=== PATIENT | female | born 1975 | race Caucasian/White ===

== ENCOUNTER 2022-05-02 08:34 | Inpatient (IN) | payer BC ==
[2022-05-02] VITALS (33 sets, daily range): BP systolic 86–136; BP diastolic 48–85
[~2022-05-02] VITALS: Ht 172.7 cm; Wt 126.6 kg
--- NOTE | 2022-05-02 08:44 | NUR ---
[id number] FROM HOME ALTERED, PER EMS REPORT PATIENT COMPLAINED OF ABDOMINAL PAIN LAST NIGHT AT 2230, COULD NOT WAKE UP THIS MORNING, BS 94. PT ARRIVED IS RESPIRATORY DISTRESS, EMS BAGGING PT UPON ARRIVAL. ATTACHED TO MONITOR. DR RICHEY AT BEDSIDE PREPARING FOR INTUBATION. 4MG OF NARCAN GIVEN, MINIMAL RESPONSE. PT VITAL PRIOR TO INTUBATION BLOD PRESSURE 140/94 HEART RATE 119 SATTING AT 100% 6L NC. 20MG OF ETOMIDATE GIVEN AT 0844 AND 100MG ROCURONIUM. INTRA PROCEDURE VITALS BLOOD PRESSURE 171/110 HEART RATE 124 SATTING AT 100%. ET ESTABLIHSED AT 0855 7' AND 23 AT THE LIP. CONFIRMED BY X RAY.
[2022-05-02] MEDS ORDERED: PROPOFOL 100 ML ONE (08:47)
[2022-05-02] MEDS ORDERED: IV NS 0.9% 1,000 ML BAG IV ONE (09:00)
--- NOTE | 2022-05-02 09:00 | NUR ---
16FR HOUSE IN PLACE, URINE OUT PUT 200CC CLEAR AND YELLOW, URINE COLLECTED AT BEDSIDE.
[2022-05-02 09:24] LABS: BASOPHILS # (AUTO) 0.1 K/uL (0.0-0.2); BASOPHILS % (AUTO) 0.2 % (0.0-2.0); EOSINOPHILS % (AUTO) 0.1 % (0.0-6.0); HEMATOCRIT 35 % (33-45); HEMOGLOBIN 10.6 g/dL (11.5-14.8); LYMPHOCYTES # (AUTO) 2.4 K/uL (0.8-4.8); LYMPHOCYTES % (AUTO) 10.8 % (20.0-44.0); MEAN CORPUSCULAR HGB CONC 30 g/dl (31.0-36.0); MEAN CORPUSCULAR VOLUME 83 fL (82-100); MONOCYTES % (AUTO) 4.6 % (2.0-12.0); NEUTROPHILS # (AUTO) 18.6 K/uL (1.8-8.9); NEUTROPHILS % (AUTO) 84.3 % (43.0-81.0); PLATELET COUNT (AUTO) 370 K/uL (150-450); RED BLOOD CELL COUNT(AUTO) 4.24 MIL/uL (4.0-5.2); WHITE BLOOD COUNT (AUTO) 22.1 K/uL (4.3-11.0)
[2022-05-02 09:27] LABS: BILIRUBIN,URINE NEGATIVE (NEGATIVE); COLOR,URINE ORANGE (YELLOW); LEUKOCYTE ESTERASE ,URINE NEGATIVE (NEGATIVE); NITRITE, URINE NEGATIVE (NEGATIVE); PH,URINE 5.5 (5.0-8.0); PROTEIN,URINE 2+ mg/dl (NEGATIVE); UGLUCOSE NEGATIVE (NEGATIVE)
--- NOTE | 2022-05-02 09:35 | NUR ---
MOVE SHEET SUBMITTED.
[2022-05-02 09:39] LABS: SERUM AMMONIA 79 umol/L (11-32)
--- NOTE | 2022-05-02 09:39 | NUR ---
COVID SWAB COLLECTED AND SENT TO LAB
[2022-05-02 09:40] LABS: CALCIUM, SERUM 7.9 mg/dL (8.5-10.1); CARBON DIOXIDE 22 mmol/L (21-32); CHLORIDE 97 mmol/L (98-107); GLUCOSE 80 mg/dL (74-106); POTASSIUM 4.8 mmol/L (3.5-5.1); SODIUM SERUM 133 mmol/L (136-145); UREA NITROGEN, BLOOD 9 mg/dL (7-18)
[2022-05-02 09:45] LABS: ALANINE AMINOTRANSFERASE 288 U/L (12-78); ALBUMIN 3.1 g/dL (3.4-5.0); ALCOHOL, BLOOD < 3 mg/dL (0-0); ALKALINE PHOSPHATASE 151 U/L (46-116); ASPARTATE AMINOTRANSFERASE 708 U/L (15-37); BILIRUBIN,DIRECT 0.6 mg/dL (0.0-0.2); BILIRUBIN,TOTAL 0.7 mg/dL (0.2-1.0); TOTAL PROTEIN, SERUM 7.6 g/dL (6.4-8.2)
[2022-05-02 09:46] LABS: ACETAMINOPHEN < 10 ug/ml (10-30)
[2022-05-02 09:49] LABS: BACTERIA,URINE Few /HPF (None Seen); RBC,URINE NONE SEEN /HPF (0-2)
[2022-05-02 09:53] LABS: THYROID STIMULATING HORMONE 4.359 uIU/mL (0.358-3.74)
[2022-05-02] MEDS ORDERED: CEFEPIME 1 GM in IV D5W 50 ML IV ONE (10:00)
[2022-05-02] MEDS ORDERED: IV NS 0.9% 1,000 ML IV ONE (10:00)
[2022-05-02] MEDS ORDERED: VANCOMYCIN 1 GM in IV D5W 250 ML IV ONE (10:00)
[2022-05-02] MEDS ORDERED: ALPR0.25 PO (10:39)
[2022-05-02] MEDS ORDERED: SERT25TA PO (10:39)
[2022-05-02] MEDS ORDERED: PANT40TA49 PO (11:07)
--- NOTE | 2022-05-02 11:20 | NUR ---
BLOOD PRESSURE LOW. DR RICHEY IS AWARE, DR RICHEY WANTS TO START A CENTRAL LINE AND THEN START LEVOPHED
[2022-05-02 11:37] LABS: ABG BASE EXCESS -12.2 mmol/L; ABG PCO2 62.7 mmHg (35.0-45.0); ABG PH 7.075 (7.350-7.450); ABG PO2 91.5 mmHg (75.0-100.0); COHb 0.3 % (0.5-1.5); MetHb 0.4 % (0.0-1.5); O2Hb 94.5 % (94.0-97.0); PEEP,BG 5 cm H2O; SITE, ABG Right Radial; VENT MODE, BG AC 100%; VT, ABG 450 mL
--- NOTE | 2022-05-02 11:39 | NUR ---
PICC LINE NURSE AT BEDSIDE
--- NOTE | 2022-05-02 11:50 | NUR ---
GOT BED 254
--- NOTE | 2022-05-02 12:06 | NUR ---
FRANCESCA PICC LINE INSERTED.
[2022-05-02] MEDS ORDERED: MAG HYDROX/AL HYDROX/SIMETH 30 ML UDC PO PRN (12:30)
[2022-05-02] MEDS ORDERED: MAGNESIUM HYDROXIDE 30 ML UDC PO PRN (12:30)
[2022-05-02] MEDS ORDERED: ZOLPIDEM TARTRATE 5 MG TABLET PO PRN (12:30)
[2022-05-02] MEDS ORDERED: ACETAMINOPHEN 650 MG/SUPP.RECT RC PRN (12:30)
[2022-05-02] MEDS ORDERED: LACTULOSE 10 G/15 ML UDC (PYXIS) PO PRN (12:30)
[2022-05-02] MEDS ORDERED: ACETAMINOPHEN 325 MG TABLET PO PRN (12:30)
[2022-05-02] MEDS ORDERED: Z GUARD REMEDY 4 OZ OINT TP PRN (12:30)
[2022-05-02] MEDS ORDERED: PIPERACILLIN /TAZOBACTAM 3.375 G in IV D5W 50 ML IV ONE (13:00)
--- NOTE | 2022-05-02 13:07 | NUR ---
DAKOTAH TREVIZO, FOR REPORT; NO AVAILABLE AT THIS TIME, WILL CALL BACK
--- NOTE | 2022-05-02 13:18 | NUR ---
ATTEMPTED TO GIVE REPORT, CHARGED NURSE IS ALSO BUSY PER GLIDING PILOT INSTRUCTOR
--- NOTE | 2022-05-02 13:55 | NUR ---
report given to Janice CLAIRE for [place]
--- NOTE | 2022-05-02 13:57 | NUR ---
PATIENT REGISTRATION MANAGER AT BEDSIDE FOR ULTRASOUND
--- NOTE | 2022-05-02 13:57 | NUR ---
RT CALLED FOR PT TRANSFER
--- NOTE | 2022-05-02 14:25 | NUR ---
RT NOTE PT WAS TRANSFERRED FROM ER TO ICU BED 254 FROM BED 5 ER. PT IS CURRENTLY STABLE SHOWING NO SIGNS OF RESP. DISRTRESS WILL CONTINUE TO MONITOR FOR ANY CHANGES. VENTILATOR PLUGGED INTO RED OUTLET, AMBU BAG BY BEDSIDE. PT HAS BEEN SUCTIONED AND TOLERATED WELL . PT IS CURRENTLY STABLE.
--- NOTE | 2022-05-02 14:28 | NUR ---
PT TRANSFERRED TO [address] [facility] ACLS PROTOCOL. RT AT BEDSIDE W/ PT. WARM HAND OFF GIVEN TO DAKOTAH TREVIZO.
--- NOTE | 2022-05-02 14:37 | NUR ---
14:30 attempted to perform US-GB exam. Per RN, Tyrell Pt was just transferred to ICU. PT not stable for exam at this time. will try later.
[2022-05-02] MEDS: IV D5/ 0.9% NACL 1,000 ML IV PRN ×2 (14:51→22:05)
[2022-05-02] MEDS ORDERED: ETOMIDATE 2 MG/ML VIAL IV ONE (15:06)
[2022-05-02] MEDS ORDERED: PROPOFOL 200 MG/20 ML VIAL IV ONE (15:06)
[2022-05-02] MEDS ORDERED: ROCURONIUM BROMIDE 50 MG/5 ML IV ONE (15:06)
[2022-05-02] MEDS: Folic acid 1 MG in IV D5W 50 ML IV SCH (15:15)
[2022-05-02] MEDS: NOREPINEPHRINE 8 MG in IV NS 0.9% 242 ML IV PRN ×2 (15:18→19:27)
--- NOTE | 2022-05-02 15:43 | NUR ---
pt. received from er on vent support via 7.0 et tube secured @ 23 cm lipline with vent settings below as ordered: AC 16 VT 450ML FIO2 90% PEEP +5 BREATH SOUNDS CLEAR BILATERAL. VENT PLUGGED INTO RED OUTLET WITH ALARMS ON AND FUNCTIONING. BVM @ BEDSIDE. Addendum: 05/02/22 at 1548 by ANTONIO BENTON RT Amended: Links added.
[2022-05-02] MEDS: Thiamine 100 MG in IV D5W 50 ML IV SCH (16:12)
[2022-05-02] MEDS: PROPOFOL 100 ML IV PRN ×3 (16:13→23:50)
[2022-05-02] MEDS ORDERED: HEPARIN SODIUM, PORCINE 5000 UNITS/1 ML VIAL SQ SCH (21:00)
[2022-05-02] MEDS: PIPERACILLIN /TAZOBACTAM 3.375 G in IV D5W 100 ML IV SCH (21:35)
[2022-05-02] MEDS: IV NS 0.9% 250 ML IV PRN (21:35)
[2022-05-03] VITALS (92 sets, daily range): BP systolic 87–131; BP diastolic 21–67
[2022-05-03] MEDS: PROPOFOL 100 ML IV PRN ×9 (02:43→22:49)
[2022-05-03] MEDS: NOREPINEPHRINE 8 MG in IV NS 0.9% 242 ML IV PRN ×2 (03:16→03:19)
[2022-05-03] MEDS: IV D5/ 0.9% NACL 1,000 ML IV PRN ×3 (04:13→19:19)
[2022-05-03] MEDS: PIPERACILLIN /TAZOBACTAM 3.375 G in IV D5W 100 ML IV SCH ×3 (05:30→21:01)
[2022-05-03 05:35] LABS: ALANINE AMINOTRANSFERASE 856 U/L (12-78); ALBUMIN 2.4 g/dL (3.4-5.0); ALKALINE PHOSPHATASE 109 U/L (46-116); BILIRUBIN,DIRECT 0.3 mg/dL (0.0-0.2); BILIRUBIN,TOTAL 0.5 mg/dL (0.2-1.0); CALCIUM, SERUM 6.7 mg/dL (8.5-10.1); CARBON DIOXIDE 22 mmol/L (21-32); CHLORIDE 102 mmol/L (98-107); CREATININE 3.2 mg/dL (0.6-1.3); GLUCOSE 115 mg/dL (74-106); SODIUM SERUM 133 mmol/L (136-145); UREA NITROGEN, BLOOD 21 mg/dL (7-18)
[2022-05-03 05:37] LABS: CHOLESTEROL 148 mg/dL (<200); HDL CHOLESTEROL 45 mg/dL (40-60); LDL 66 mg/dL (0-99); T4 (THYROXINE) 4.3 ug/dL (4.7-13.3); TRIGLYCERIDES 340 mg/dL (30-150)
[2022-05-03 06:09] LABS: IRON, SERUM 13 ug/dl (50-175); TOTAL IRON BINDING CAPACITY 368 ug/dl (250-450)
[2022-05-03 06:14] LABS: BASOPHILS % (AUTO) 0.1 % (0.0-2.0); EOSINOPHILS % (AUTO) 0.1 % (0.0-6.0); HEMATOCRIT 33 % (33-45); HEMOGLOBIN 10.1 g/dL (11.5-14.8); LYMPHOCYTES # (AUTO) 0.8 K/uL (0.8-4.8); LYMPHOCYTES % (AUTO) 5.8 % (20.0-44.0); MEAN CORPUSCULAR HGB CONC 31 g/dl (31.0-36.0); MEAN CORPUSCULAR VOLUME 82 fL (82-100); MONOCYTES # (AUTO) 0.5 K/uL (0.1-1.30); NEUTROPHILS # (AUTO) 11.8 K/uL (1.8-8.9); PLATELET COUNT (AUTO) 264 K/uL (150-450); RED BLOOD CELL COUNT(AUTO) 4.02 MIL/uL (4.0-5.2); WHITE BLOOD COUNT (AUTO) 13.1 K/uL (4.3-11.0)
[2022-05-03 06:54] LABS: ASPARTATE AMINOTRANSFERASE > 1000 U/L (15-37)
[2022-05-03 06:55] LABS: CREATINE KINASE, TOTAL > 1000 U/L (26-192)
[2022-05-03] MEDS: PANTOPRAZOLE 40 MG VIAL IV SCH (08:02)
[2022-05-03] MEDS: ASPIRIN 81 MG TAB.CHEW PO SCH (08:03)
[2022-05-03 08:45] LABS: IRON, SERUM 9 ug/dl (50-175); TOTAL IRON BINDING CAPACITY 324 ug/dl (250-450)
[2022-05-03 08:58] LABS: FERRITIN 254 ng/mL (8-388)
[2022-05-03 09:05] LABS: ABG PCO2 53.7 mmHg (35.0-45.0); ABG PH 7.158 (7.350-7.450); ABG PO2 98.1 mmHg (75.0-100.0); AaDO2 125.3 mmHg; COHb 0.3 % (0.5-1.5); MetHb 0.2 % (0.0-1.5); O2Hb 95.5 % (94.0-97.0); SITE, ABG Right Radial
[2022-05-03] MEDS ORDERED: VANCOMYCIN 1.5 GM in IV D5W 500ml IV SCH (10:00)
[2022-05-03 12:01] LABS: ABG BASE EXCESS -11.2 mmol/L; ABG OXYGEN SATURATION 68.5 % (92.0-98.5); ABG PCO2 53.5 mmHg (35.0-45.0); ABG PH 7.137 (7.350-7.450); ABG PO2 42.2 mmHg (75.0-100.0); MetHb 0.3 % (0.0-1.5); O2Hb 68.3 % (94.0-97.0); SITE, ABG Other
[2022-05-03] MEDS: Folic acid 1 MG in IV D5W 50 ML IV SCH (15:08)
[2022-05-03] MEDS: Thiamine 100 MG in IV D5W 50 ML IV SCH (15:58)
[2022-05-04] VITALS (42 sets, daily range): BP systolic 90–126; BP diastolic 48–80
[2022-05-04] MEDS: PROPOFOL 100 ML IV PRN ×6 (01:03→22:47)
[2022-05-04] MEDS: IV D5/ 0.9% NACL 1,000 ML IV PRN ×4 (02:10→23:37)
[2022-05-04] MEDS: IV NS 0.9% 250 ML IV PRN (02:10)
[2022-05-04] MEDS: PIPERACILLIN /TAZOBACTAM 3.375 G in IV D5W 100 ML IV SCH ×3 (04:01→20:52)
[2022-05-04 04:54] LABS: BASOPHILS # (AUTO) 0.1 K/uL (0.0-0.2); BASOPHILS % (AUTO) 0.7 % (0.0-2.0); HEMATOCRIT 29 % (33-45); HEMOGLOBIN 9.1 g/dL (11.5-14.8); LYMPHOCYTES % (AUTO) 5.8 % (20.0-44.0); MEAN CORPUSCULAR HGB CONC 31 g/dl (31.0-36.0); MEAN CORPUSCULAR VOLUME 82 fL (82-100); NEUTROPHILS # (AUTO) 14.7 K/uL (1.8-8.9); NEUTROPHILS % (AUTO) 86.5 % (43.0-81.0); PLATELET COUNT (AUTO) 262 K/uL (150-450); RED BLOOD CELL COUNT(AUTO) 3.57 MIL/uL (4.0-5.2); WHITE BLOOD COUNT (AUTO) 17.1 K/uL (4.3-11.0)
[2022-05-04 05:52] LABS: ALBUMIN 2.4 g/dL (3.4-5.0); BILIRUBIN,TOTAL 0.5 mg/dL (0.2-1.0); CALCIUM, SERUM 6.8 mg/dL (8.5-10.1); CREATININE 5.4 mg/dL (0.6-1.3); PHOSPHORUS 6.2 mg/dL (2.5-4.9); POTASSIUM 5.2 mmol/L (3.5-5.1); TOTAL PROTEIN, SERUM 6.5 g/dL (6.4-8.2)
--- NOTE | 2022-05-04 07:00 | NUR ---
RN NOTES RECEIVED PT ON BED, INTUBATED AND SEDATED, TOLERAING VENT SETTING WELL, O2 SAT WNL, ON TELE SR HR IN 90'S , HOUSE TO GRAVITY, NO URINE OUTPUT NOTED, DIPRIVAN AT 55 MCG/KG/MIN RUNNING , IVF AT 150CC/HR , PT NPO AT THIS TIME, SR UP x3, CALL LIGHT WITHIN EASY REACH, BED LOCKED AND IN LOWEST POSITION CONTINUE TO MONITOR.
[2022-05-04 07:13] LABS: ALBUMIN 2.4 g/dL (3.4-5.0); BILIRUBIN,DIRECT 0.3 mg/dL (0.0-0.2); BILIRUBIN,TOTAL 0.5 mg/dL (0.2-1.0); TOTAL PROTEIN, SERUM 6.5 g/dL (6.4-8.2)
[2022-05-04] MEDS: PANTOPRAZOLE 40 MG VIAL IV SCH (08:28)
[2022-05-04 09:32] LABS: ABG BASE EXCESS -14.7 mmol/L; ABG OXYGEN SATURATION 74.3 % (92.0-98.5); ABG PCO2 54.9 mmHg (35.0-45.0); ABG PH 7.059 (7.350-7.450); ABG PO2 45.4 mmHg (75.0-100.0); COHb 0.1 % (0.5-1.5); MetHb 0.2 % (0.0-1.5); O2Hb 74.1 % (94.0-97.0); SITE, ABG Other
--- NOTE | 2022-05-04 10:15 | NUR ---
RT PER DR MORENO ETT PUSHED IN 2CM AND SECURED AT 25CM AT THE TOP LIP. VENT CHANGES MADE AC 28, 550, 40% +5. Addendum: 05/04/22 at 1016 by CARLA GALDAMEZ RT Amended: Links added.
--- NOTE | 2022-05-04 11:00 | NUR ---
RN NOTES PT NOT STABLE TO GO OFF FLOOR FOR HIDA SCAN PER DR MORENO ORDER
--- NOTE | 2022-05-04 11:30 | NUR ---
RN NOTES DR MORENO NOTIFIED REGARDING ABG RESULTS , NEW VENT SETTING ORDER RECEIVED .
[2022-05-04 11:58] LABS: ABG BASE EXCESS -12.3 mmol/L; ABG OXYGEN SATURATION 99.1 % (92.0-98.5); ABG PCO2 26.8 mmHg (35.0-45.0); ABG PH 7.296 (7.350-7.450); ABG PO2 162.9 mmHg (75.0-100.0); AaDO2 91.5 mmHg; COHb 0.3 % (0.5-1.5); MetHb 0.1 % (0.0-1.5); O2Hb 98.7 % (94.0-97.0); SITE, ABG Right Radial
[2022-05-04] MEDS ORDERED: VANCOMYCIN POST DIALYSIS 500MG IV PRN ×2 (12:00)
--- NOTE | 2022-05-04 13:00 | NUR ---
RN NOTES NGT INSERTED , PLACEMENT VERIFIED BY TWO RNS .
[2022-05-04] MEDS: ASPIRIN 81 MG TAB.CHEW PO SCH (13:20)
[2022-05-04] MEDS: LEVOTHYROXINE SODIUM 25 MCG TABLET PO SCH (14:45)
--- NOTE | 2022-05-04 15:00 | NUR ---
RN NOTES PT SEDATED, TOLERAING VENT SETTING WELL, SUPPORTIVE FAMILY AT THE BEDSIDE, CONTINUE TO MONITOR .
[2022-05-04] MEDS: Folic acid 1 MG in IV D5W 50 ML IV SCH (15:48)
[2022-05-04] MEDS: Thiamine 100 MG in IV D5W 50 ML IV SCH (16:06)
--- NOTE | 2022-05-04 18:11 | NUR ---
RN NOTES PT REMIANS INTUBATED AND SEDATED, ON DIPRIVAN AT 40 MCG/KG/MIN, TOLERAING VENT SETTING WELL, FIO2 30% AT AT THIS TIME, DR NAJERA AT THE BEDSIDE UPDATING FAMILY REGARDING PT STATUS, NO URINE OUTPUT NOTED, MD AWARE . WILL ENDORSE TO NIGHT SHIT NURSE FOR CONTINUITY OF CARE .
[2022-05-05] VITALS (66 sets, daily range): BP systolic 90–204; BP diastolic 47–98
--- NOTE | 2022-05-05 01:07 | NUR ---
ICU/RN: ZHANG SHIPMAN AT BEDSIDE. RIGHT IJ HD CATH PLACED. PT TOLERATED WELL.
[2022-05-05] MEDS: PROPOFOL 100 ML IV PRN ×7 (01:44→21:52)
[2022-05-05 04:18] LABS: BASOPHILS % (AUTO) 0.3 % (0.0-2.0); EOSINOPHILS % (AUTO) 1.9 % (0.0-6.0); HEMATOCRIT 24 % (33-45); HEMOGLOBIN 7.6 g/dL (11.5-14.8); LYMPHOCYTES # (AUTO) 1.5 K/uL (0.8-4.8); MEAN CORPUSCULAR HGB CONC 32 g/dl (31.0-36.0); MEAN CORPUSCULAR VOLUME 80 fL (82-100); MONOCYTES # (AUTO) 1.5 K/uL (0.1-1.30); MONOCYTES % (AUTO) 10.1 % (2.0-12.0); NEUTROPHILS # (AUTO) 11.7 K/uL (1.8-8.9); NEUTROPHILS % (AUTO) 77.7 % (43.0-81.0); PLATELET COUNT (AUTO) 234 K/uL (150-450); RED BLOOD CELL COUNT(AUTO) 3.03 MIL/uL (4.0-5.2)
[2022-05-05 04:36] LABS: CALCIUM, SERUM 6.9 mg/dL (8.5-10.1); CREATININE 6.9 mg/dL (0.6-1.3); MAGNESIUM 1.9 mg/dL (1.8-2.4); PHOSPHORUS 6.3 mg/dL (2.5-4.9); POTASSIUM 4.5 mmol/L (3.5-5.1)
[2022-05-05 04:43] LABS: BILIRUBIN,DIRECT 0.4 mg/dL (0.0-0.2); BILIRUBIN,TOTAL 0.5 mg/dL (0.2-1.0); TOTAL PROTEIN, SERUM 5.7 g/dL (6.4-8.2)
[2022-05-05] MEDS: PIPERACILLIN /TAZOBACTAM 3.375 G in IV D5W 100 ML IV SCH (05:14)
[2022-05-05] MEDS: IV D5/ 0.9% NACL 1,000 ML IV PRN ×3 (06:13→19:08)
--- NOTE | 2022-05-05 06:45 | NUR ---
ICU/RN: CARLOS MULTANI RN AT BEDSIDE TO PERFORM DIALYSIS.
--- NOTE | 2022-05-05 07:15 | NUR ---
RN NOTES RECEIVED PATIENT ETT/VENT NE=281, FIO2-30, PEEP-0, SETTING TOLERATING WELL, SEDATED DIPRIVAN 35MCG/KG/HR. IV INFUSING D5NS@150ML/HR, AND TKO ON KAREN PICC LINE INTACT. RIJ HD CATH INTACT GETTING DIALYZE AT THIS TIME. HR- 66, BP-94/52 ON BEDSIDE MONITOR. BILATERAL SOFT RESTRAIN INTACT, RECHECKED CIRCULATION, ASSIST TURN AND REPOSTION Q 2 HR. WILL FOLLOW UP.
[2022-05-05] MEDS: LEVOTHYROXINE SODIUM 25 MCG TABLET PO SCH (08:10)
[2022-05-05] MEDS: PANTOPRAZOLE 40 MG VIAL IV SCH (08:17)
[2022-05-05] MEDS: ASPIRIN 81 MG TAB.CHEW PO SCH (08:18)
--- NOTE | 2022-05-05 08:46 | NUR ---
RN NOTES GET VERBAL ORDER START NEPRO @20 ML.HR NGT FEEDING , AND SEDATION VACATION TODAY.
--- NOTE | 2022-05-05 08:48 | NUR ---
RN NOTES FINISHED HD THIS TIME, BP 97/55, P- 64, R-22, , OUTPUT WAS -500ML, PATIENT GETTING CHEST X-RAY AT THIS TIME WELL.
[2022-05-05] MEDS ORDERED: NEPRO 1,000 ML BOTTLE GT SCH (09:00)
[2022-05-05 09:07] LABS: ABG BASE EXCESS -5.7 mmol/L; ABG OXYGEN SATURATION 97.6 % (92.0-98.5); ABG PCO2 27.5 mmHg (35.0-45.0); ABG PH 7.427 (7.350-7.450); ABG PO2 99.1 mmHg (75.0-100.0); AaDO2 82.5 mmHg; COHb 0.1 % (0.5-1.5); O2Hb 97.5 % (94.0-97.0); SITE, ABG Right Radial
--- NOTE | 2022-05-05 09:25 | NUR ---
RN NOTES HELD SEDATION AT THIS TIME , PATIENT CALM AND COOPERATIVE, TITRATED PER PROTOCOL. PATIENT AWAKE, NO ACUTE RESPIRATORY DISTRESS, RT AWARE OF, ABG DONE, FAMILY NEXT TO THE BED. WILL FOLLOW UP.
[2022-05-05] MEDS ORDERED: MAG HYDROX/AL HYDROX/SIMETH 30 ML UDC NG PRN (09:49)
[2022-05-05] MEDS ORDERED: MAGNESIUM HYDROXIDE 30 ML UDC NG PRN (09:49)
[2022-05-05] MEDS ORDERED: LACTULOSE 10 G/15 ML UDC (PYXIS) NG PRN (09:51)
--- NOTE | 2022-05-05 10:09 | NUR ---
rn notes resumed sedation back at this time diprivan 10mcg/kg/min, patient severely agitated, suction , will titrate up per protocol. hr-84, o2- 87%, increased fio2-45% via RT , bp 153/95, will follow up. will follow up.
[2022-05-05] MEDS: THIAMINE HCL 100 MG TABLET NG SCH (10:50)
[2022-05-05] MEDS: FOLIC ACID 1 MG TABLET NG SCH (10:50)
[2022-05-05] MEDS: NEPRO 1,000 ML BOTTLE NG SCH (11:53)
--- NOTE | 2022-05-05 12:10 | NUR ---
rn notes started NGT feeding at this time Nepro 20ml @20hr. patient sedated, family next to the bed, seen hospitalist, due medication administered. will follow up.
[2022-05-05] MEDS: PIPERACILLIN /TAZOBACTAM 2.25 G in IV D5W 50 ML IV SCH ×2 (12:24→20:49)
[2022-05-05] MEDS: IV NS 0.9% 250 ML IV PRN (12:29)
--- NOTE | 2022-05-05 18:35 | NUR ---
RN NOTES PM CARE DONE, SUCTION, MOUTH CARE, DUE MEDICATION ADMINISTERED, VSS, NO ACUTE RESPIRATORY DISTRESS. PATIENT TOLERATING FEEDING WELL. RECHECKED BILATERAL WRIST RESTRAIN CIRCULATION, ASSIST TURN AND REPOSITION Q 2 HR. INFUSING DIPRIVAN 45MCG/KG/MIN,, D5NS@150ML, AND TKO @10ML/HR ON FRANCESCA PICC LINE INTACT. KEEP HOB ELEVATED FOR ASPIRATION PRECAUTION. ENDORSED ONCOMING NURSE KEMAL.
[2022-05-06] VITALS (29 sets, daily range): BP systolic 92–173; BP diastolic 47–93
[2022-05-06] MEDS: PROPOFOL 100 ML IV PRN ×10 (00:19→23:41)
[2022-05-06] MEDS: IV D5/ 0.9% NACL 1,000 ML IV PRN ×4 (02:32→21:42)
[2022-05-06] MEDS: PIPERACILLIN /TAZOBACTAM 2.25 G in IV D5W 50 ML IV SCH ×3 (04:35→20:19)
[2022-05-06 04:36] LABS: BASOPHILS # (AUTO) 0.1 K/uL (0.0-0.2); BASOPHILS % (AUTO) 0.6 % (0.0-2.0); EOSINOPHILS % (AUTO) 4.1 % (0.0-6.0); HEMATOCRIT 23 % (33-45); HEMOGLOBIN 7.1 g/dL (11.5-14.8); LYMPHOCYTES # (AUTO) 1.5 K/uL (0.8-4.8); MEAN CORPUSCULAR HGB CONC 31 g/dl (31.0-36.0); MEAN CORPUSCULAR VOLUME 79 fL (82-100); MONOCYTES # (AUTO) 1.4 K/uL (0.1-1.30); MONOCYTES % (AUTO) 11.5 % (2.0-12.0); NEUTROPHILS # (AUTO) 8.4 K/uL (1.8-8.9); NEUTROPHILS % (AUTO) 70.8 % (43.0-81.0); PLATELET COUNT (AUTO) 240 K/uL (150-450); WHITE BLOOD COUNT (AUTO) 11.8 K/uL (4.3-11.0)
[2022-05-06 04:40] LABS: CREATININE 6.7 mg/dL (0.6-1.3); MAGNESIUM 1.9 mg/dL (1.8-2.4); PHOSPHORUS 5.9 mg/dL (2.5-4.9); POTASSIUM 3.6 mmol/L (3.5-5.1)
--- NOTE | 2022-05-06 07:06 | NUR ---
RECEIVED REPORT FROM NIGHTSHIFT RN. PATIENT REMAINS IN ROOM. SPONTANEOUS BREATHING TRIAL TODAY. WILL CONTINUE PLAN OF CARE AND ANTICIPATE NEEDS
[2022-05-06] MEDS: LEVOTHYROXINE SODIUM 25 MCG TABLET NG SCH (07:12)
--- NOTE | 2022-05-06 07:36 | NUR ---
DIPRIVAN STOPPED FOR SPONTANEOUS BREATHING TRIAL
[2022-05-06] MEDS: THIAMINE HCL 100 MG TABLET NG SCH (08:11)
[2022-05-06] MEDS: PANTOPRAZOLE 40 MG/PACK PACK NG SCH (08:11)
[2022-05-06] MEDS: ASPIRIN 81 MG TAB.CHEW NG SCH (08:11)
[2022-05-06] MEDS: FOLIC ACID 1 MG TABLET NG SCH (08:11)
--- NOTE | 2022-05-06 08:56 | NUR ---
PT. IS AWAKE AND FOLLOW COMMANDS PLACED BACK INTO AC MODE DUE TO INCREASED WORK OF BREATHING( 33 RR, 90 SPO2, DIAPHORETIC). RN AWARE. Addendum: 05/06/22 at 0857 by ANTONIO BENTON RT Amended: Links added.
--- NOTE | 2022-05-06 08:59 | NUR ---
PLACED BACK INTO AC MODE DUE TO INCREASED WORK OF BREATHING( 33 RR, 90 SPO2, DIAPHORETIC). RESTARTED DIPRIVAN AT 50 MCGS.
[2022-05-06] MEDS ORDERED: VANCOMYCIN 1.5 GM in IV D5W 500ml IV SCH (09:00)
[2022-05-06] MEDS: IV NS 0.9% 250 ML IV PRN (11:22)
--- NOTE | 2022-05-06 11:54 | NUR ---
PATIENT TEMPERATURE 97 DEGREES FAHRENHEIT. WARM BLANKET APPLIED, WILL RECHECK TEMP IN ONE HOUR
[2022-05-06] MEDS: NEPRO 1,000 ML BOTTLE NG SCH (14:05)
[2022-05-06] MEDS ORDERED: ALBUMIN 25% 25 GM in PREMIX 1 EA IV PRN (14:30)
--- NOTE | 2022-05-06 19:05 | NUR ---
HAND OFF REPORT GIVEN TO STEVE CLAIRE.
[2022-05-07] VITALS (24 sets, daily range): BP systolic 97–172; BP diastolic 51–108
[2022-05-07] MEDS: PROPOFOL 100 ML IV PRN ×3 (01:52→06:23)
[2022-05-07 04:07] LABS: BASOPHILS % (AUTO) 0.4 % (0.0-2.0); EOSINOPHILS % (AUTO) 4.4 % (0.0-6.0); HEMATOCRIT 22 % (33-45); HEMOGLOBIN 7.4 g/dL (11.5-14.8); LYMPHOCYTES # (AUTO) 1.4 K/uL (0.8-4.8); LYMPHOCYTES % (AUTO) 12.2 % (20.0-44.0); MEAN CORPUSCULAR HGB CONC 33 g/dl (31.0-36.0); MEAN CORPUSCULAR VOLUME 78 fL (82-100); MONOCYTES % (AUTO) 8.4 % (2.0-12.0); NEUTROPHILS # (AUTO) 8.6 K/uL (1.8-8.9); NEUTROPHILS % (AUTO) 74.6 % (43.0-81.0); PLATELET COUNT (AUTO) 265 K/uL (150-450); RED BLOOD CELL COUNT(AUTO) 2.86 MIL/uL (4.0-5.2); WHITE BLOOD COUNT (AUTO) 11.5 K/uL (4.3-11.0)
[2022-05-07 04:20] LABS: CALCIUM, SERUM 7.6 mg/dL (8.5-10.1); CREATININE 5.4 mg/dL (0.6-1.3); MAGNESIUM 2.1 mg/dL (1.8-2.4); PHOSPHORUS 4.2 mg/dL (2.5-4.9)
[2022-05-07] MEDS: PIPERACILLIN /TAZOBACTAM 2.25 G in IV D5W 50 ML IV SCH ×3 (04:31→21:55)
[2022-05-07] MEDS: IV D5/ 0.9% NACL 1,000 ML IV PRN ×4 (04:31→23:39)
[2022-05-07 04:43] LABS: POTASSIUM 2.8 mmol/L (3.5-5.1)
--- NOTE | 2022-05-07 07:09 | NUR ---
ICU/RN: LOW POTASSIUM 2.[address] NAJERA NEW ORDERS FOR 10MEQ KCL IVPB x1 AND HD WITH 4K BATH. ENDORSED TO AM SHIFT.
--- NOTE | 2022-05-07 07:15 | NUR ---
RECEIVED HAND OFF REPORT FROM SEAL MIXER RN. WILL CLARIFY KCL ORDER OR 10 MEQ FOR 2.8 POTASSIUM, WITH PROVIDER. WILL CONTINUE PLAN OF CARE AND ANTICIPATE NEEDS.
[2022-05-07] MEDS ORDERED: POTASSIUM CL. PREMIX PERIPHER. 50 ML IV SCH ×3 (07:30→09:00)
[2022-05-07] MEDS: LEVOTHYROXINE SODIUM 25 MCG TABLET NG SCH (07:33)
[2022-05-07] MEDS ORDERED: POTASSIUM CHLORIDE 10 MEQ/50 ML PREMIXED IVPB FOR PERIPHERAL LINE IV ONE (08:00)
[2022-05-07] MEDS: PANTOPRAZOLE 40 MG/PACK PACK NG SCH (08:07)
[2022-05-07] MEDS: FOLIC ACID 1 MG TABLET NG SCH (08:07)
[2022-05-07] MEDS: ASPIRIN 81 MG TAB.CHEW NG SCH (08:07)
[2022-05-07] MEDS: THIAMINE HCL 100 MG TABLET NG SCH (08:07)
--- NOTE | 2022-05-07 08:20 | NUR ---
PATIENT OFF DIPRIVAN FOR BREATHING TRIAL
[2022-05-07] MEDS ORDERED: DC PROPOFOL WHEN EXTUBATED XX PRN (09:00)
[2022-05-07 09:06] LABS: BILIRUBIN,DIRECT 0.4 mg/dL (0.0-0.2); BILIRUBIN,TOTAL 0.6 mg/dL (0.2-1.0); TOTAL PROTEIN, SERUM 5.9 g/dL (6.4-8.2)
[2022-05-07 09:46] LABS: ABG BASE EXCESS -6.3 mmol/L; ABG OXYGEN SATURATION 94.3 % (92.0-98.5); ABG PCO2 34.9 mmHg (35.0-45.0); ABG PH 7.347 (7.350-7.450); AaDO2 94.9 mmHg; COHb 0.1 % (0.5-1.5); MetHb 0.2 % (0.0-1.5); SITE, ABG Right Radial
--- NOTE | 2022-05-07 09:50 | NUR ---
pt extubated post weaning trial and abg. Dr. Izquierdo at bedside during extubation zero distress noted. b/s equal. able to clear airway
[2022-05-07] MEDS: ONDANSETRON HCL/PF 4 MG/2 ML VIAL IVP PRN ×3 (11:10→23:01)
[2022-05-07] MEDS: IV NS 0.9% 250 ML IV PRN (13:50)
[2022-05-07] MEDS: CLONIDINE HCL 0.1 MG TABLET PO PRN ×2 (16:19→22:14)
[2022-05-07] MEDS: hydrALAZINE HCL 25 MG TABLET PO SCH (17:09)
[2022-05-08] VITALS (18 sets, daily range): BP systolic 131–174; BP diastolic 74–98
[2022-05-08] MEDS: hydrALAZINE HCL 25 MG TABLET PO SCH ×4 (00:08→21:01)
[2022-05-08 04:27] LABS: BASOPHILS % (AUTO) 0.2 % (0.0-2.0); HEMATOCRIT 25 % (33-45); LYMPHOCYTES # (AUTO) 1.2 K/uL (0.8-4.8); LYMPHOCYTES % (AUTO) 7.5 % (20.0-44.0); MEAN CORPUSCULAR HGB CONC 32 g/dl (31.0-36.0); MEAN CORPUSCULAR VOLUME 78 fL (82-100); MONOCYTES # (AUTO) 1.3 K/uL (0.1-1.30); MONOCYTES % (AUTO) 8.2 % (2.0-12.0); NEUTROPHILS # (AUTO) 12.9 K/uL (1.8-8.9); NEUTROPHILS % (AUTO) 83.1 % (43.0-81.0); PLATELET COUNT (AUTO) 300 K/uL (150-450); RED BLOOD CELL COUNT(AUTO) 3.18 MIL/uL (4.0-5.2); WHITE BLOOD COUNT (AUTO) 15.5 K/uL (4.3-11.0)
[2022-05-08 04:40] LABS: CREATININE 4.5 mg/dL (0.6-1.3); PHOSPHORUS 5.6 mg/dL (2.5-4.9); POTASSIUM 3.4 mmol/L (3.5-5.1)
[2022-05-08] MEDS: ONDANSETRON HCL/PF 4 MG/2 ML VIAL IVP PRN ×3 (05:05→16:34)
[2022-05-08] MEDS: PIPERACILLIN /TAZOBACTAM 2.25 G in IV D5W 50 ML IV SCH (05:05)
[2022-05-08] MEDS: IV D5/ 0.9% NACL 1,000 ML IV PRN (06:08)
--- NOTE | 2022-05-08 07:30 | NUR ---
OPENING NOTE: REPORT RECEIVED FROM STEVE CLAIRE. LABS AND ORDERS REVIEWED DURING REPORT. PER REPORT PT WAS EXTUBATED YESTERDAY, CURRENTLY ON 4L NASAL CANNULA. PT ALERT OX3. PER REPORT SEVERAL BM'S OVERNIGHT. PT CHECKED ON HOURLY AND PRN BY NURSING STAFF.
[2022-05-08] MEDS ORDERED: MAG HYDROX/AL HYDROX/SIMETH 30 ML UDC PO PRN (07:53)
[2022-05-08] MEDS ORDERED: LACTULOSE 10 G/15 ML UDC (PYXIS) PO PRN (07:53)
[2022-05-08] MEDS ORDERED: MAGNESIUM HYDROXIDE 30 ML UDC PO PRN (07:54)
[2022-05-08] MEDS ORDERED: PHARMACY TO CHANGE GT/NG MEDS TO PO XX PRN (08:00)
[2022-05-08] MEDS: ALBUTEROL FS 2.5 MG/0.5 ML VIAL.NEB NEB SCH ×5 (08:00→23:30)
[2022-05-08] MEDS: ASPIRIN 81 MG TAB.CHEW PO SCH (08:13)
[2022-05-08] MEDS: THIAMINE HCL 100 MG TABLET PO SCH (08:13)
[2022-05-08] MEDS: LEVOTHYROXINE SODIUM 25 MCG TABLET PO SCH (08:13)
[2022-05-08] MEDS: FOLIC ACID 1 MG TABLET PO SCH (08:14)
[2022-05-08] MEDS: PANTOPRAZOLE 40 MG TABLET.DR PO SCH (08:14)
[2022-05-08 11:44] LABS: BAND % (MANUAL) 8 % (0.0-5.0); EOSINOPHILS % (MANUAL) 3 % (0-4); LYMPHOCYTES % (MANUAL) 7 % (16-48); MONOCYTES % (MANUAL) 6 % (0-11.0); NEUTROPHILS % (MANUAL) 78 (42-76)
[2022-05-08] MEDS ORDERED: CEFTRIAXONE 2 G in IV D5W 100 ML IV SCH (13:00)
--- NOTE | 2022-05-08 15:46 | NUR ---
PT TRANSFERRED TO ROOM 114-1 USING ACLS PROTOCOL. TELEPHONE REPORT GIVEN TO ML CLAIRE PRIOR TO TRANSFER BUT UPON ARRIVAL TO ROOM PT'S NURSE HAD CHANGED. BEDSIDE REPORT GIVEN TO NEW NURSE. PT SETTLED IN ROOM, TELEMETRY HOOKED UP. ALL BELONGINGS BROUGHT WITH PATIENT. PT'S BROTHER AT BEDSIDE.
--- NOTE | 2022-05-08 19:06 | NUR ---
PT TRANSFERRED FROM ICU USING ACLS PROTOCOL, BEDSIDE REPORT RECEIVED FROM RAVEN CLAIRE. PATIENT A/O X 4 DENIES PAIN/DISCOMFORT. PATIENT PLACED ON TELEMETRY MONITORING TELEMETRY, OBSERVED WITH (RT) IJ JULIETH CATHETER, SITE WNL PATIENT HAS HOUSE CATHETER IN PLACE, NO URINE OUTPUT OBSERVED. PATIENT C/O NAUSEA AND MEDICATED PER MD ORDERS. PATIENT STARTED AND IS STILL RECEIVING HEMODIALYSIS . PATIENT IS SCHEDULED FOR PERMACATH PLACEMENT IN THE AM, REFUSED TO SIGN ALL REQUIRED CONSENT. PATIENT AND HER ARE REQUESTING TO SPEAK WITH THE SURGEON PRIOR TO PROCEDURE; BEFORE CONSENT WILL BE GIVEN ALSO PATIENT STATED THAT SHE NEEDS TO SPEAK WITH HER BROTHER AND HER PCP. CHARGE MADE AWARE. PATIENT IS STABLE, BEDSIDE REPORT GIVEN TO THE ON-COMIMG NURSE. PATIENT IS NPO AFTER MIDNIGHT AND IS AWARE, VERBALIZED UNDERSTANDING.
--- NOTE | 2022-05-08 19:20 | NUR ---
RN NOTES RECEIVED REPORT FROM MORNING RN. PATIENT IN BED A/O X4 WITH AT BEDSIDE. ON NASAL CANULA @4L SATING 98%. WITH HOUSE CATHETER CONNECTED TO URINE BAG NO URINE OUTPUT NOTED. WITH L UA PICC LINE PATENT FLUSHES WELL. WITH R IJ INTACT. WITH ONGOING HEMODIALYSIS BY HD NURSE. ALL SAFETY MEASURES IN PLACE AT ALL TIMES. HOB ELEVATED. CALL LIGHT WITHIN REACH. WILL CLOSELY MONITOR THE PATIENT
--- NOTE | 2022-05-08 20:30 | NUR ---
RN NOTES HEMODIALYSIS COMPLETED. UF GOAL 2L. PATIENT COMFORTABLE IN BED TOLERATING HEMODIALYSIS WELL
[2022-05-08] MEDS: ZOLPIDEM TARTRATE 5 MG TABLET PO PRN (22:08)
[2022-05-09] VITALS: BP 127/87
[2022-05-09] MEDS: hydrALAZINE HCL 25 MG TABLET PO SCH ×4 (00:19→17:08)
[2022-05-09] MEDS: ONDANSETRON HCL/PF 4 MG/2 ML VIAL IVP PRN ×3 (01:54→19:53)
[2022-05-09] MEDS: ALBUTEROL FS 2.5 MG/0.5 ML VIAL.NEB NEB SCH ×6 (03:30→23:59)
[2022-05-09 04:00] VITALS: BP 133/81
[2022-05-09 06:46] LABS: BASOPHILS # (AUTO) 0.1 K/uL (0.0-0.2); BASOPHILS % (AUTO) 0.3 % (0.0-2.0); EOSINOPHILS % (AUTO) 1.1 % (0.0-6.0); HEMATOCRIT 25 % (33-45); HEMOGLOBIN 8.2 g/dL (11.5-14.8); LYMPHOCYTES % (AUTO) 10.6 % (20.0-44.0); MEAN CORPUSCULAR HGB CONC 32 g/dl (31.0-36.0); MEAN CORPUSCULAR VOLUME 78 fL (82-100); MONOCYTES # (AUTO) 1.4 K/uL (0.1-1.30); MONOCYTES % (AUTO) 7.3 % (2.0-12.0); NEUTROPHILS # (AUTO) 15.2 K/uL (1.8-8.9); NEUTROPHILS % (AUTO) 80.7 % (43.0-81.0); PLATELET COUNT (AUTO) 392 K/uL (150-450); RED BLOOD CELL COUNT(AUTO) 3.25 MIL/uL (4.0-5.2); WHITE BLOOD COUNT (AUTO) 18.8 K/uL (4.3-11.0)
--- NOTE | 2022-05-09 06:49 | NUR ---
RN NOTES PATIENT REMAINS STABLE NO SIGNIFICANT CHANGES IN HEALTH CONDITION. ALL DUE MEDS GIVEN ORDERED. PATIENT STILL WITH IV ACCEAA LFA PICC LINE, R IJ INTACT. PATIENT AGUILAR DIALYSIS DONE LAST NIGHT WITH 2L UF. STILL ON NASLA CANULA AT 4L TOLERATING WELL NO SOB NO DISTRESS NOTED DURING THE SHIFT. AT BEDSIDE AT ALL TIMES. FOR PERMACATH INSERTION TODAY, PATIENT ON NPO SINCE MIDNIGHT. ALL SAFETY MEASURES IN PLACE AT ALL TIMES. WILL CENDORSED TO MORNING SHIFT FOR KEMAL
[2022-05-09] MEDS: LEVOTHYROXINE SODIUM 25 MCG TABLET PO SCH (07:40)
[2022-05-09] MEDS: PANTOPRAZOLE 40 MG TABLET.DR PO SCH (07:40)
[2022-05-09 07:41] LABS: BILIRUBIN,TOTAL 0.5 mg/dL (0.2-1.0); CALCIUM, SERUM 8.3 mg/dL (8.5-10.1); CREATININE 4.3 mg/dL (0.6-1.3); MAGNESIUM 2.2 mg/dL (1.8-2.4); PHOSPHORUS 7.2 mg/dL (2.5-4.9); POTASSIUM 2.9 mmol/L (3.5-5.1); TOTAL PROTEIN, SERUM 6.4 g/dL (6.4-8.2)
[2022-05-09 08:00] VITALS: BP 155/83
[2022-05-09] MEDS: ASPIRIN 81 MG TAB.CHEW PO SCH (09:00)
[2022-05-09] MEDS: FOLIC ACID 1 MG TABLET PO SCH (09:00)
[2022-05-09] MEDS: THIAMINE HCL 100 MG TABLET PO SCH (09:00)
[2022-05-09] MEDS: POTASSIUM CHLORIDE 20 MEQ TAB.PRT.SR PO SCH ×4 (09:00→18:04)
--- NOTE | 2022-05-09 09:00 | NUR ---
RN NOTE MORNING MEDICATION 0900 O'CLOCK HELD DUE TO SURGERY AT 1100.
[2022-05-09] MEDS ORDERED: IOHEXOL 240MG/ML 0 ML IV ONE (11:13)
[2022-05-09] MEDS ORDERED: HEPARIN SODIUM, PORCINE 1,000 UNIT/ML VIAL ONE (11:13)
[2022-05-09] MEDS ORDERED: LIDOCAINE 1% INJ 50 ML MDV IJ ONE (11:13)
--- NOTE | 2022-05-09 12:00 | NUR ---
RN NOTE PATIENT IN SURGERY. DID NOT ADMINISTER THE NOON MEDICATIONS
[2022-05-09] MEDS ORDERED: hydrALAZINE HCL IV 20 MG VIAL ONE (12:26)
[2022-05-09] MEDS ORDERED: ALBUTEROL FS 2.5 MG/3 ML VIAL.NEB ONE (12:27)
[2022-05-09 13:20] VITALS: BP 169/75
[2022-05-09 16:00] VITALS: BP 158/100
[2022-05-09] MEDS: PIPERACILLIN /TAZOBACTAM 2.25 G in IV D5W 50 ML IV SCH ×2 (17:06→20:44)
--- NOTE | 2022-05-09 18:50 | NUR ---
RN CLOSING NOTES PATIENT STABLE IN BED, TODAY AT 1100 PATIENT WAS TAKEN TO THE SURGERY FOR PERMA CATH HD, PATIENT CAME BACK AT 1230 STABLE WITH STABLE VITAL SIGNS. ALL MORNING MEDICATION HELD EXCEPT 0730 MEDICATIONS SYNTHROID AND PROTONIX. PATIENT HAD A DIALYSIS AT 1345 2 LITERS FLUID REMOVED PATIENT FINISHED WITH HD AT 1715 AND AFTER THAT ALL DUE MEDICATIONS GIVEN. PATIENT'S ELIZABETH AT BEDSIDE SHE IS GOING TO STAY UNTIL 2100. PATIENT ON RENAL DIET, PATIENT STILL WITH IV ACCESS LFA PICC LINE, R SUBCERVICAL IJ INTACT. ON NASAL CANULA 4L TOLERATING WELL NO SOB NO DISTRESS NOTED DURING THE SHIFT. AT BEDSIDE AT ALL TIMES. ALL SAFETY MEASURES IN PLACE AT ALL TIMES. WILL ENDORSE THE PATIENT FOR THE INFRASTRUCTURE TECH RN FOR KEMAL
--- NOTE | 2022-05-09 19:10 | NUR ---
RN NOTES RECEIVED REPORT FROM MORNING RN. PATIENT IN BED A/O X4 WITH AT BEDSIDE. ON NASAL CANULA @4L SATING 98%. WITH HOUSE CATHETER CONNECTED TO URINE BAG NO URINE OUTPUT NOTED. WITH L UA PICC LINE PATENT FLUSHES WELL. WITH HD CATH IN PLACE NO BLEEDING NOTED. ALL SAFETY MEASURES IN PLACE AT ALL TIMES. HOB ELEVATED. CALL LIGHT WITHIN REACH. WILL CLOSELY MONITOR THE PATIENT
--- NOTE | 2022-05-09 19:51 | NUR ---
Pt recvd awake and verbal on 3 lpm NC, no sob or respiratory distress noted at this time. Neb tx given and pt leidy well. spo2 >92%. family at bedside.
[2022-05-09 20:00] VITALS: BP 164/91
[2022-05-09] MEDS: ZOLPIDEM TARTRATE 5 MG TABLET PO PRN (22:50)
[2022-05-10] VITALS: BP 133/81
[2022-05-10] MEDS: hydrALAZINE HCL 25 MG TABLET PO SCH ×4 (01:01→17:25)
[2022-05-10] MEDS: ALBUTEROL FS 2.5 MG/0.5 ML VIAL.NEB NEB SCH ×6 (02:50→23:28)
[2022-05-10 04:00] VITALS: BP 135/75
[2022-05-10] MEDS: PIPERACILLIN /TAZOBACTAM 2.25 G in IV D5W 50 ML IV SCH ×2 (05:39→12:14)
--- NOTE | 2022-05-10 06:45 | NUR ---
RN NOTES PATIENT REMAINS STABLE NO SIGNIFICANT CHANGES IN HEALTH CONDITION. ALL DUE MEDS GIVEN ORDERED. PATIENT STILL WITH IV ACCESS LFA PICC LINE, R CW PERMA . STILL ON NASAL CANULA AT 2L TOLERATING WELL NO SOB NO DISTRESS NOTED DURING THE SHIFT. AT BEDSIDE AT ALL TIMES. FOR PERMACATH INSERTION TODAY, PATIENT ON NPO SINCE MIDNIGHT. ALL SAFETY MEASURES IN PLACE AT ALL TIMES. WILL CENDORSED TO MORNING SHIFT FOR KEMAL
--- NOTE | 2022-05-10 07:25 | NUR ---
RN OPEN NOTE RECEIVED PATIENT IN BED AWAKE ON 3 L OF O2 , BREATHING NON LABORED , NO S/S OF DISTRESS PATIENT HAS IV ACCESS FRANCESCA PICC LINE, R CW FEMORAL HD PERMA . PATIENT IS ALERT , ORIENTED TIMES 3 , ON RENAL DIET ALL SAFETY MEASURES IN PLACE , HAS REDNESS IN GROIN AREA , NO CO PLAINES OF PAIN OR DISCOMFORT. BED IS AT LOWEST POSITION , CALL LIGHT WITHIN REACH BED SIDE RAILS ARE UP BED ALARM IS ON , WILL CONTINUE TO MONITOR.
[2022-05-10] MEDS: PANTOPRAZOLE 40 MG TABLET.DR PO SCH (07:32)
[2022-05-10] MEDS: LEVOTHYROXINE SODIUM 25 MCG TABLET PO SCH (07:33)
[2022-05-10 08:00] VITALS: BP 149/65
[2022-05-10] MEDS: FOLIC ACID 1 MG TABLET PO SCH (08:43)
[2022-05-10] MEDS: THIAMINE HCL 100 MG TABLET PO SCH (08:43)
[2022-05-10] MEDS: ASPIRIN 81 MG TAB.CHEW PO SCH (08:43)
[2022-05-10] MEDS: ONDANSETRON HCL/PF 4 MG/2 ML VIAL IVP PRN (08:48)
[2022-05-10 09:50] LABS: BASOPHILS # (AUTO) 0.1 K/uL (0.0-0.2); BASOPHILS % (AUTO) 0.4 % (0.0-2.0); EOSINOPHILS % (AUTO) 2.2 % (0.0-6.0); HEMATOCRIT 26 % (33-45); HEMOGLOBIN 8.2 g/dL (11.5-14.8); LYMPHOCYTES % (AUTO) 10.5 % (20.0-44.0); MEAN CORPUSCULAR HGB CONC 32 g/dl (31.0-36.0); MEAN CORPUSCULAR VOLUME 78 fL (82-100); MONOCYTES # (AUTO) 1.5 K/uL (0.1-1.30); NEUTROPHILS # (AUTO) 14.9 K/uL (1.8-8.9); NEUTROPHILS % (AUTO) 78.9 % (43.0-81.0); PLATELET COUNT (AUTO) 377 K/uL (150-450); RED BLOOD CELL COUNT(AUTO) 3.31 MIL/uL (4.0-5.2); WHITE BLOOD COUNT (AUTO) 18.9 K/uL (4.3-11.0)
[2022-05-10 10:11] LABS: BILIRUBIN,TOTAL 0.4 mg/dL (0.2-1.0); CALCIUM, SERUM 8.2 mg/dL (8.5-10.1); CREATININE 4.6 mg/dL (0.6-1.3); MAGNESIUM 2.2 mg/dL (1.8-2.4); PHOSPHORUS 5.2 mg/dL (2.5-4.9); POTASSIUM 3.5 mmol/L (3.5-5.1); TOTAL PROTEIN, SERUM 6.4 g/dL (6.4-8.2)
[2022-05-10 12:00] VITALS: BP 157/89
[2022-05-10 16:21] VITALS: BP 144/88
--- NOTE | 2022-05-10 16:43 | NUR ---
RN NOTE PATIENT STATED THAT SHE HAS DOUBLE VISION WHRN LOOKING WITH BOTH EYES , WHEN SHE CLOSE ONE EYE SHE IS SEEING WELL .
--- NOTE | 2022-05-10 18:53 | NUR ---
RN CLOSING NOTE RECEIVED PATIENT IN BED AWAKE ON 3 L OF O2 , BREATHING NON LABORED , NO S/S OF DISTRESS PATIENT HAS IV ACCESS FRANCESCA PICC LINE, R CW FEMORAL HD PERMA . PATIENT IS ALERT , ORIENTED TIMES 3 , ON RENAL DIET.HAS HEMODIALUSIS TODAY REMOVED 2 L ALL SAFETY MEASURES IN PLACE , HAS REDNESS IN GROIN AREA , NO CO PLAINES OF PAIN OR DISCOMFORT.ALL MEDICATIONS WERE ADMINISTERD , ALL NEEDS WERE MET BED IS AT LOWEST POSITION , CALL LIGHT WITHIN REACH BED SIDE RAILS ARE UP BED ALARM IS ON , WILL ENDORSE FLEXIBLE NANNY NURSE TO CONTINUE TO MFALLOW UP WITH POC
--- NOTE | 2022-05-10 19:35 | NUR ---
MOTORCYCLE FABRICATOR OPEN NOTE: ALERT AND ORIENTED TIMES THREE. MOIST ORAL MUCOSA. ON 02 2LPM NC. PICC LINE ON LEFT UPPER ARM. RT AC. NO S/S OF COMPLICATIONS. RIGHT CHEST HD CATHETER WITH CLEAN DRESSING, AND BAND AIDS ON RIGHT SIDE OF NECK. ON TELE MONITOR WITH A READING OF SINUS RHYTHM OF 96. HOUSE CATHETER IN PLACE WITH SMALL AMOUNT OF TEA COLOR AND PINK URINE. BILATERAL GROIN AND PERINEAL REDNESS, INCONTINENT OF BOWEL. KEPT CLEAN AND DRY. REPOSITIONED WITH PILLOWS. VISITED BY . DECLINES PAIN OR DISCOMFORT. HOB ELEVATED SEMI-FOWLERS POSITION. BILATERAL HALF SIDE RAILS UP X2. BED IN LOW POSITION, LOCKED, BED EXIT ALARM ON, CALL LIGHT WITHIN REACH.
[2022-05-10 20:00] VITALS: BP 140/74
[2022-05-10] MEDS ORDERED: VANCOMYCIN 1 GM in IV D5W 250ml IV ONE (21:00)
[2022-05-10] MEDS: ZOLPIDEM TARTRATE 5 MG TABLET PO PRN (21:31)
[2022-05-11] VITALS: BP 145/86
[2022-05-11] MEDS: hydrALAZINE HCL 25 MG TABLET PO SCH ×5 (01:03→23:59)
[2022-05-11 04:00] VITALS: BP 155/87
[2022-05-11] MEDS: ALBUTEROL FS 2.5 MG/0.5 ML VIAL.NEB NEB SCH ×6 (04:15→23:29)
--- NOTE | 2022-05-11 07:00 | NUR ---
CHIEF TECHNICAL OFFICER CLOSING NOTE: ALERT AND ORIENTED TIMES THREE. MOIST ORAL MUCOSA. ON 02 2LPM NC. PICC LINE ON LEFT UPPER ARM. RT AC. NO S/S OF COMPLICATIONS. RIGHT CHEST HD CATHETER WITH CLEAN DRESSING, AND BAND AIDS ON RIGHT SIDE OF NECK. ON TELE MONITOR WITH A READING OF SINUS RHYTHM OF [address] WITH SMALL AMOUNT OF COLOR PINK URINE. BILATERAL GROIN AND PERINEAL REDNESS, INCONTINENT OF BOWEL. KEPT CLEAN AND DRY. REPOSITIONED WITH PILLOWS. DECLINES PAIN OR DISCOMFORT. HOB ELEVATED SEMI-FOWLERS POSITION. BILATERAL HALF SIDE RAILS UP X2. BED IN LOW POSITION, LOCKED, BED EXIT ALARM ON, CALL LIGHT WITHIN REACH.
[2022-05-11 07:18] LABS: BASOPHILS # (AUTO) 0.1 K/uL (0.0-0.2); BASOPHILS % (AUTO) 0.8 % (0.0-2.0); EOSINOPHILS % (AUTO) 3.7 % (0.0-6.0); HEMATOCRIT 26 % (33-45); HEMOGLOBIN 8.2 g/dL (11.5-14.8); LYMPHOCYTES # (AUTO) 2.4 K/uL (0.8-4.8); LYMPHOCYTES % (AUTO) 13.2 % (20.0-44.0); MEAN CORPUSCULAR HGB CONC 32 g/dl (31.0-36.0); MEAN CORPUSCULAR VOLUME 78 fL (82-100); MONOCYTES # (AUTO) 1.4 K/uL (0.1-1.30); MONOCYTES % (AUTO) 7.7 % (2.0-12.0); NEUTROPHILS # (AUTO) 13.3 K/uL (1.8-8.9); NEUTROPHILS % (AUTO) 74.6 % (43.0-81.0); PLATELET COUNT (AUTO) 428 K/uL (150-450); RED BLOOD CELL COUNT(AUTO) 3.29 MIL/uL (4.0-5.2); WHITE BLOOD COUNT (AUTO) 17.8 K/uL (4.3-11.0)
[2022-05-11 07:41] LABS: BILIRUBIN,TOTAL 0.4 mg/dL (0.2-1.0); CALCIUM, SERUM 8.5 mg/dL (8.5-10.1); CREATININE 4.2 mg/dL (0.6-1.3); MAGNESIUM 2.2 mg/dL (1.8-2.4); PHOSPHORUS 4.7 mg/dL (2.5-4.9); POTASSIUM 3.4 mmol/L (3.5-5.1); TOTAL PROTEIN, SERUM 6.4 g/dL (6.4-8.2)
[2022-05-11 08:00] VITALS: BP 166/99
[2022-05-11] MEDS: LEVOTHYROXINE SODIUM 25 MCG TABLET PO SCH (08:27)
[2022-05-11] MEDS: THIAMINE HCL 100 MG TABLET PO SCH (08:27)
[2022-05-11] MEDS: ASPIRIN 81 MG TAB.CHEW PO SCH (08:27)
[2022-05-11] MEDS: FOLIC ACID 1 MG TABLET PO SCH (08:27)
[2022-05-11] MEDS: PANTOPRAZOLE 40 MG TABLET.DR PO SCH (08:27)
[2022-05-11 11:50] LABS: BAND % (MANUAL) 2 % (0.0-5.0); EOSINOPHILS % (MANUAL) 7 % (0-4); LYMPHOCYTES % (MANUAL) 15 % (16-48); METAMYELOCYTES % 1 % (0-0); MONOCYTES % (MANUAL) 5 % (0-11.0); MYELOCYTES % 4 % (0-0); NEUTROPHILS % (MANUAL) 66 (42-76)
[2022-05-11 12:00] VITALS: BP 154/94
[2022-05-11] MEDS: ONDANSETRON HCL/PF 4 MG/2 ML VIAL IVP PRN (12:15)
--- NOTE | 2022-05-11 12:31 | NUR ---
RN NOTE PER PHARMACY, GIVE VANCOMYCIN AFTER HEMODIALYSIS IS COMPLETE
[2022-05-11 16:00] VITALS: BP 146/78
--- NOTE | 2022-05-11 16:49 | NUR ---
RN NOTE HEMODIALYSIS BEGAN AT 1717.
--- NOTE | 2022-05-11 18:30 | NUR ---
RN NOTE DIALYSIS COMPLETED, REMOVED 1 LITER. BP: 146/78, AND HR OF 95.
[2022-05-11] MEDS: VANCOMYCIN POST DIALYSIS 500MG IV PRN ×2 (18:43)
--- NOTE | 2022-05-11 19:40 | NUR ---
METER READERS SUPERVISOR OPEN NOTE: ALERT AND ORIENTED TIMES THREE. MOIST ORAL MUCOSA. ON BREATHING TREATMENT BY RT. PICC LINE ON LEFT UPPER ARM. RT AC. NO S/S OF COMPLICATIONS. RIGHT CHEST HD CATHETER WITH CLEAN DRESSING, AND BAND AIDS ON RIGHT SIDE OF NECK. ON TELE MONITOR WITH A READING OF SINUS TACHY 103. FAMILY AND AT BEDSIDE. HOUSE CATHETER IN PLACE. KEPT CLEAN AND DRY. REPOSITIONED WITH PILLOWS. DECLINES PAIN OR DISCOMFORT. HOB ELEVATED SEMI-FOWLERS POSITION. BILATERAL HALF SIDE RAILS UP X2. BED IN LOW POSITION, LOCKED, BED EXIT ALARM ON, CALL LIGHT WITHIN REACH.
[2022-05-11 20:00] VITALS: BP 152/84
--- NOTE | 2022-05-11 20:45 | NUR ---
SODA DISPENSER CLOSING NOTE PATIENT IS IN BED ALERT AND ORIENTED X4. BREATHING ON 02 2LPM NC. PICC LINE ON LEFT UPPER ARM. RT AC. NO S/S OF COMPLICATIONS. RIGHT CHEST HD CATHETER WITH CLEAN DRESSING. ON TELE MONITOR WITH A READING OF SINUS RHYTHM OF 95. HOUSE CATHETER IN PLACE WITH SMALL AMOUNT OF COLOR PINK URINE. BILATERAL GROIN AND PERINEAL REDNESS. KEPT CLEAN AND DRY. REPOSITIONED WITH PILLOWS. DECLINES PAIN OR DISCOMFORT. HOB ELEVATED SEMI-FOWLERS POSITION. BILATERAL HALF SIDE RAILS UP X2. BED IN LOW POSITION, LOCKED, BED EXIT ALARM ON, CALL LIGHT WITHIN REACH. WILL ENDORSE CONTINUITY OF CARE TO MAXILLOFACIAL SURGEON NURSE
[2022-05-11] MEDS: ZOLPIDEM TARTRATE 5 MG TABLET PO PRN (21:05)
[2022-05-12] VITALS: BP 175/93
[2022-05-12] MEDS: ALBUTEROL FS 2.5 MG/0.5 ML VIAL.NEB NEB SCH ×6 (03:40→23:42)
[2022-05-12 04:00] VITALS: BP 156/83
[2022-05-12] MEDS: hydrALAZINE HCL 25 MG TABLET PO SCH ×4 (05:09→23:42)
--- NOTE | 2022-05-12 06:50 | NUR ---
MACHINE LOADER CLOSING NOTE: ALERT AND ORIENTED TIMES THREE. MOIST ORAL MUCOSA. ON 02 2LPM NC. PICC LINE ON LEFT UPPER ARM. NO S/S OF COMPLICATIONS. RIGHT CHEST HD CATHETER WITH CLEAN DRESSING, AND BAND AIDS ON RIGHT SIDE OF NECK. NO SIDE EFFECTS OF ABX. ON TELE MONITOR WITH A READING OF SINUS RHYTHM OF 92. HOUSE CATHETER IN PLACE WITH SMALL AMOUNT OF COLOR PINK URINE. BILATERAL GROIN AND PERINEAL REDNESS, INCONTINENT OF BOWEL. KEPT CLEAN AND DRY. REPOSITIONED WITH PILLOWS. DECLINES PAIN OR DISCOMFORT. HOB ELEVATED SEMI-FOWLERS POSITION. BILATERAL HALF SIDE RAILS UP X2. BED IN LOW POSITION, LOCKED, BED EXIT ALARM ON, CALL LIGHT WITHIN REACH
--- NOTE | 2022-05-12 07:15 | NUR ---
DIRECTORY COMPILER OPENING NOTE: RECEIVED PT. IN BED. A0X4, NO COMPLAINTS OF PAIN/DISCOMFORT AT THIS TIME. PT. ON O2 VIA NASAL CANNULA AT 2 L/MIN. NO S/S OF RESPIRATORY DISTRESS. COFFEE MAKER SERVICER READS NSR. ON HOUSE CATH WITH HEMATURIA NOTED DRAINING BELOW THE BLADDER. PT. HAS BILATERAL GROIN REDNESS. WILL KEEP CLEAN AND DRY AND DO SKIN PRECAUTIONS. IV ACCESS ON FRANCESCA PICC WITH NS RUNNING TKO, IV ACCESS HAS NO S/S OF INFILTRATION NOTED. R CHEST WALL PERMA CATH NOTED, DRESSING C/D/I. SAFETY MEASURES IN PLACE: BED IN LOWEST & LOCKED POSITION, SIDE RAILS UP, HOB ELEVATED AT 30 DEGREES, BED ALARM ON, CALL LIGHT WITHIN REACH. WILL ENCOURAGE FREQUENT REPOSITIONING IN BED AT LEAST Q2H. WILL CONTINUE TO MONITOR FOR ANY CHANGES.
[2022-05-12 07:52] LABS: ALBUMIN 1.9 g/dL (3.4-5.0); BILIRUBIN,TOTAL 0.3 mg/dL (0.2-1.0); CALCIUM, SERUM 8.3 mg/dL (8.5-10.1); CREATININE 5.1 mg/dL (0.6-1.3); MAGNESIUM 2.2 mg/dL (1.8-2.4); PHOSPHORUS 5.3 mg/dL (2.5-4.9); POTASSIUM 3.3 mmol/L (3.5-5.1); TOTAL PROTEIN, SERUM 6.2 g/dL (6.4-8.2)
[2022-05-12 08:00] VITALS: BP 162/86
[2022-05-12 08:28] LABS: BASOPHILS # (AUTO) 0.1 K/uL (0.0-0.2); BASOPHILS % (AUTO) 0.6 % (0.0-2.0); EOSINOPHILS % (AUTO) 2.5 % (0.0-6.0); HEMATOCRIT 25 % (33-45); HEMOGLOBIN 7.8 g/dL (11.5-14.8); LYMPHOCYTES # (AUTO) 2.1 K/uL (0.8-4.8); LYMPHOCYTES % (AUTO) 11.1 % (20.0-44.0); MEAN CORPUSCULAR HGB CONC 31 g/dl (31.0-36.0); MEAN CORPUSCULAR VOLUME 79 fL (82-100); MONOCYTES # (AUTO) 1.1 K/uL (0.1-1.30); NEUTROPHILS # (AUTO) 15.1 K/uL (1.8-8.9); NEUTROPHILS % (AUTO) 79.8 % (43.0-81.0); PLATELET COUNT (AUTO) 403 K/uL (150-450); RED BLOOD CELL COUNT(AUTO) 3.19 MIL/uL (4.0-5.2); WHITE BLOOD COUNT (AUTO) 18.9 K/uL (4.3-11.0)
[2022-05-12] MEDS: FOLIC ACID 1 MG TABLET PO SCH (08:37)
[2022-05-12] MEDS: LEVOTHYROXINE SODIUM 25 MCG TABLET PO SCH (08:37)
[2022-05-12] MEDS: ASPIRIN 81 MG TAB.CHEW PO SCH (08:37)
[2022-05-12] MEDS: PANTOPRAZOLE 40 MG TABLET.DR PO SCH (08:37)
[2022-05-12] MEDS: THIAMINE HCL 100 MG TABLET PO SCH (08:37)
[2022-05-12 12:00] VITALS: BP 102/52
--- NOTE | 2022-05-12 12:15 | NUR ---
ASSET MANAGEMENT COORDINATOR NOTE: APRESOLINE 25MG PO SCHEDULED AT 1200 WILL BE HELD DUE TO SCHEDULED HEMODIALYSIS TODAY.
--- NOTE | 2022-05-12 15:30 | NUR ---
LAST DIPPER NOTE: HD STARTED AT 1230 AND ENDED AT 1520. GOT 1,500 ML OUT. PT.'S VS STABLE AT THIS TIME. NO COMPLAINTS OF DIZZINESS/DISCOMFORT AT THIS TIME.
[2022-05-12 16:00] VITALS: BP 157/91
[2022-05-12] MEDS: VANCOMYCIN POST DIALYSIS 500MG IV PRN ×2 (16:53)
--- NOTE | 2022-05-12 16:57 | NUR ---
CURRICULUM AND ASSESSMENT DIRECTOR NOTE: VANCO 500 MG IV PRN POST HD WILL BE HELD DUE TO VANCO TROUGH OF 21 TODAY. THIS IS PER MD ORDER AND DOUBLE CHECKED WITH PHARMACY.
[2022-05-12] MEDS: CLONIDINE HCL 0.1 MG TABLET PO PRN ×2 (17:01)
--- NOTE | 2022-05-12 19:20 | NUR ---
RN OPENING NOTE: RECEIVED PT IN BED. A0X4, NO COMPLAINTS OF PAIN/DISCOMFORT AT THIS TIME. PT. ON O2 VIA NC 1L/MIN. NO S/S OF RESPIRATORY DISTRESS, PT IS ASKING ABOUT TITRATING UP ON 02 NIGHT. TELE MONITOR READS SR. R CHEST WALL PERMA CATH NOTED, DRESSING C/D/I. IV ACCESS FRANCESCA PICC, INTACT AND PATENT, HOUSE CATHETER SHOWS SIGNS OF HEMATURIA. HAS BILATERAL GROIN REDNESS. SAFETY MEASURES IN PLACE: BED IN LOWEST & LOCKED POSITION, SIDE RAILS UP, HOB ELEVATED AT 30 DEGREES, BED ALARM ON, CALL LIGHT WITHIN REACH. WILL ENCOURAGE FREQUENT REPOSITIONING IN BED AT LEAST Q2H. WILL CONTINUE TO MONITOR FOR ANY CHANGES.
--- NOTE | 2022-05-12 19:20 | NUR ---
MARKETING ASSISTANT RETAIL DIVISION CLOSING NOTE: PT. REMAINS IN BED. A0X4, NO COMPLAINTS OF PAIN/DISCOMFORT AT THIS TIME. PT. ON O2 VIA NASAL CANNULA AT 1 L/MIN. NO S/S OF RESPIRATORY DISTRESS. RAG COLLECTOR READS NSR THE WHOLE SHIFT. HOUSE CATH DRAINED 35 ML OF URINE WITH HEMATURIA NOTED. URINE CX SAMPLE SENT TO LAB TODAY. HAD 2 BM THIS SHIFT, BROWN AND SOFT. KEPT PT. CLEAN AND DRY. SKIN PRECAUTIONS DONE. IV ACCESS ON FRANCESCA PICC WITH NS RUNNING TKO, IV ACCESS HAS NO S/S OF INFILTRATION NOTED. R CHEST WALL PERMA CATH NOTED, DRESSING C/D/I. SAFETY MEASURES MAINTAINED: BED IN LOWEST & LOCKED POSITION, SIDE RAILS UP, HOB ELEVATED AT 30 DEGREES, BED ALARM ON, CALL LIGHT WITHIN REACH. ENCOURAGED FREQUENT REPOSITIONING IN BED AT LEAST Q2H. ENDORSED CONTINUITY OF CARE TO URGENT CARE RN.
[2022-05-12 20:00] VITALS: BP 136/92
[2022-05-12] MEDS: ZOLPIDEM TARTRATE 5 MG TABLET PO PRN (23:14)
[2022-05-13] VITALS: BP 145/77
[2022-05-13 04:00] VITALS: BP 177/95
[2022-05-13] MEDS: ALBUTEROL FS 2.5 MG/0.5 ML VIAL.NEB NEB SCH ×6 (04:28→23:44)
[2022-05-13] MEDS: CLONIDINE HCL 0.1 MG TABLET PO PRN (04:28)
[2022-05-13] MEDS: LEVOTHYROXINE SODIUM 25 MCG TABLET PO SCH (06:33)
[2022-05-13] MEDS: hydrALAZINE HCL 25 MG TABLET PO SCH ×3 (06:33→17:18)
[2022-05-13] MEDS: PANTOPRAZOLE 40 MG TABLET.DR PO SCH (06:33)
--- NOTE | 2022-05-13 06:49 | NUR ---
RN CLOSING NOTE: PT IN BED. A0X4, NO COMPLAINTS OF PAIN/DISCOMFORT AT THIS TIME. PT. ON O2 VIA NC 1L/MIN. NO S/S OF RESPIRATORY DISTRESS. TELE MONITOR READS SR. R CHEST WALL PERMA CATH NOTED, DRESSING C/D/I. IV ACCESS FRANCESCA PICC, INTACT AND PATENT, HEMATURIA IN THE HOUSE CATHERETER DRAINED 50ML. ALL DUE MEDS GIVEN. ALL SAFETY MEASURES IN PLACE: BED LOCKED IN LOW POSITION, SR UP X 2, BED ALARM ON. HOB ELEVATED. CALL LIGHT WITHIN REACH. WILL ENDORSE TO MORNING SHIFT FOR KEMAL.
--- NOTE | 2022-05-13 07:15 | NUR ---
RN OPENING NOTE RECEIVED PT IN BED. Ax0 X4. NO COMPLAINTS OF PAIN/DISCOMFORT NOTED AT THIS TIME. PT ON 02 NASAL CANNULA AT 2 L AT 96%. PT ON TELE MONITOR SR. PT HOUSE CATHETHER WITH HEMATURIA DRAINING TO GRAVITY. IV ACCESS ON PICC LINE. INTACT, FLUSHING WELL. NO SIGNS OF INFILRATION. PT HAS R CHEST WALL PERMACATH CLEAN, DRESSING INTACT. ALL SAFETY MEASURES IN PLACE. BED IN LOWEST & LOCKED POSITION, SIDE RAILS UP X2., HOB ELEVATED, BED ALARM ON, CALL LIGHT WITHIN REACH.
[2022-05-13 07:24] LABS: BILIRUBIN,TOTAL 0.3 mg/dL (0.2-1.0); CALCIUM, SERUM 8.2 mg/dL (8.5-10.1); CREATININE 5.3 mg/dL (0.6-1.3); POTASSIUM 3.3 mmol/L (3.5-5.1); TOTAL PROTEIN, SERUM 6.2 g/dL (6.4-8.2)
[2022-05-13 08:00] VITALS: BP 167/91
[2022-05-13] MEDS: FOLIC ACID 1 MG TABLET PO SCH (08:59)
[2022-05-13] MEDS: THIAMINE HCL 100 MG TABLET PO SCH (08:59)
[2022-05-13] MEDS: ASPIRIN 81 MG TAB.CHEW PO SCH (08:59)
--- NOTE | 2022-05-13 09:39 | NUR ---
rn note pt noted with hematuria. notified dr. goldberg. ordered urinalysis.orders noted and carried out
--- NOTE | 2022-05-13 11:30 | NUR ---
RESP TX DEFERRED. PT RESTING WHILE RECEIVING DIALYSIS. PT SHOWS NO S/S OF SOB ATT Addendum: 05/13/22 at 1130 by HZANG REED RT Amended: Links added.
[2022-05-13 12:00] VITALS: BP 159/91
--- NOTE | 2022-05-13 13:00 | NUR ---
rn note received call from pharmacy to adjust the dose of potassium because of kidney function. responded with daily hd, pt shouldnt have potassium
--- NOTE | 2022-05-13 13:00 | NUR ---
RN NOTE PT COMPLETED DIALYSIS. REMOVED 3.5 L. PT TOLERATED WELL.
[2022-05-13 13:57] LABS: BILIRUBIN,URINE NEGATIVE (NEGATIVE); LEUKOCYTE ESTERASE ,URINE 2+ (NEGATIVE); NITRITE, URINE POSITIVE (NEGATIVE); PROTEIN,URINE 3+ mg/dl (NEGATIVE); UGLUCOSE NEGATIVE (NEGATIVE)
--- NOTE | 2022-05-13 15:29 | NUR ---
rn note sent results of urinalysis to .
--- NOTE | 2022-05-13 15:32 | NUR ---
rn note sent urinalysis to dr. goldberg. no new orders at this time
[2022-05-13 15:33] LABS: COLOR,URINE RED (YELLOW); RBC,URINE TOO NUMEROUS TO COUN /HPF (0-2)
[2022-05-13 15:34] LABS: BACTERIA,URINE 2+ /HPF (None Seen); SQUAMOUS EPITHELIAL CELL,UR 0-2 /HPF (None Seen); WBC,URINE 21-50 /HPF (0-3)
[2022-05-13 16:00] VITALS: BP 173/92
--- NOTE | 2022-05-13 18:53 | NUR ---
RN CLOSING NOTE PT IN BED. Ax0 X4. NO COMPLAINTS OF PAIN/DISCOMFORT NOTED AT THIS TIME. PT ON 02 NASAL CANNULA AT 2 L AT 97%. PT ON TELE MONITOR SR. PT HOUSE CATHETER WITH HEMATURIA DRAINING TO GRAVITY. IV ACCESS ON PICC LINE. INTACT, FLUSHING WELL. NO SIGNS OF INFILTRATION. PT HAS R CHEST WALL PERMACATH CLEAN, DRESSING INTACT. ALL SAFETY MEASURES IN PLACE. BED IN LOWEST & LOCKED POSITION, SIDE RAILS UP X2., HOB ELEVATED, BED ALARM ON, CALL LIGHT WITHIN REACH.
--- NOTE | 2022-05-13 19:15 | NUR ---
RN OPENING NOTE: RECEIVED PT IN BED. A0X4, NO COMPLAINTS OF PAIN/DISCOMFORT AT THIS TIME. PT. ON O2 VIA NC 1L/MIN. NO S/S OF RESPIRATORY DISTRESS, PT IS ASKING ABOUT TITRATING UP ON 02 NIGHT. TELE MONITOR READS SR. R CHEST WALL PERMA CATH NOTED, DRESSING C/D/I. IV ACCESS FRANCESCA PICC, INTACT AND PATENT, HOUSE CATHETER SHOWS SIGNS OF HEMATURIA. HAS BILATERAL GROIN REDNESS. AT BEDSIDE. SAFETY MEASURES IN PLACE: BED IN LOWEST & LOCKED POSITION, SIDE RAILS UP, HOB ELEVATED AT 30 DEGREES, BED ALARM ON, CALL LIGHT WITHIN REACH. WILL ENCOURAGE FREQUENT REPOSITIONING IN BED AT LEAST Q2H. WILL CONTINUE TO MONITOR FOR ANY CHANGES.
--- NOTE | 2022-05-13 19:18 | NUR ---
rn note called pharmacy to ask if special education curriculum specialist rn can give vanomcyin that was scheduled for earlier today. thiago said ok to give now and will redraw vanco trough in the morning
[2022-05-13] MEDS: VANCOMYCIN POST DIALYSIS 500MG IV PRN ×2 (19:50)
[2022-05-13 20:00] VITALS: BP 169/95
[2022-05-13] MEDS: ZOLPIDEM TARTRATE 5 MG TABLET PO PRN (22:58)
[2022-05-14] VITALS: BP 182/99
[2022-05-14] MEDS: hydrALAZINE HCL 25 MG TABLET PO SCH ×4 (00:38→17:02)
[2022-05-14] MEDS ORDERED: LORAZEPAM 1 MG TABLET PO ONE (02:06)
--- NOTE | 2022-05-14 02:07 | NUR ---
RN NOTE PT BECAME ANXIOUS AND SOB. ADVISED ABDIEL ADKINS NP. NEW ORDER FOR ATIVAN 1MG PO X1
[2022-05-14] MEDS: ALBUTEROL FS 2.5 MG/0.5 ML VIAL.NEB NEB SCH ×6 (03:31→23:18)
--- NOTE | 2022-05-14 03:32 | NUR ---
RT NOTE PT FOUND ON 10LPM SIMPLE MASK. PT CLAIMS SHE HAD AN ANXIETY ATTACK. WILL CONTINUE TO MONITOR.
[2022-05-14 04:00] VITALS: BP 188/110
[2022-05-14] MEDS: CLONIDINE HCL 0.1 MG TABLET PO PRN ×3 (04:14→20:13)
[2022-05-14 06:55] LABS: CREATININE 4.7 mg/dL (0.6-1.3); POTASSIUM 3.6 mmol/L (3.5-5.1)
--- NOTE | 2022-05-14 07:10 | NUR ---
RN CLOSING NOTE: PT IN BED. A0X4, NO COMPLAINTS OF PAIN/DISCOMFORT AT THIS TIME. PT. ON O2 VIA NC 1L/MIN. NO S/S OF RESPIRATORY DISTRESS, PT IS ASKING ABOUT TITRATING UP ON 02AT NIGHT. TELE MONITOR READS SR. R CHEST WALL PERMA CATH NOTED, DRESSING C/D/I. IV ACCESS FRANCESCA PICC, INTACT AND PATENT, HOUSE CATHETER SHOWS SIGNS OF HEMATURIA. HAS BILATERAL GROIN REDNESS.ALL DUE MEDS GIVEN. ALL SAFETY MEASURES IN PLACE: BED LOCKED IN LOW POSITION, SR UP X 2, BED ALARM ON. HOB ELEVATED. CALL LIGHT WITHIN REACH. WILL ENDORSE TO MORNING SHIFT FOR KEMAL
--- NOTE | 2022-05-14 07:32 | NUR ---
RN OPENING NOTE: RECEIVED PT IN BED. A0X4, NO COMPLAINTS OF PAIN/DISCOMFORT AT THIS TIME. PT. ON O2 VIA SI MPLE MASK 8L NO S/S OF RESPIRATORY DISTRESS, TELE MONITOR READS SR -ST R IV ACCESS FRANCESCA PICC, INTACT AND PATENT, HOUSE CATHETER SHOWS SIGNS OF HEMATURIA. HAS BILATERAL GROIN REDNESS. SAFETY MEASURES IN PLACE: BED IN LOWEST & LOCKED POSITION, SIDE RAILS UP, HOB ELEVATED AT 30 DEGREES, BED ALARM ON, CALL LIGHT WITHIN REACH. WILL CONTINUE TO MONITOR
[2022-05-14] MEDS: LEVOTHYROXINE SODIUM 25 MCG TABLET PO SCH (07:47)
[2022-05-14] MEDS: PANTOPRAZOLE 40 MG TABLET.DR PO SCH (07:47)
[2022-05-14 08:00] VITALS: BP 171/111
[2022-05-14] MEDS: FOLIC ACID 1 MG TABLET PO SCH (08:45)
[2022-05-14] MEDS: ASPIRIN 81 MG TAB.CHEW PO SCH (08:46)
[2022-05-14] MEDS: THIAMINE HCL 100 MG TABLET PO SCH (08:46)
[2022-05-14] MEDS: LORAZEPAM 0.5 MG TABLET PO PRN ×2 (10:15→20:24)
[2022-05-14] MEDS ORDERED: HYDR-4076 PO (11:00)
[2022-05-14] MEDS ORDERED: LEVO25TA7 PO (11:00)
[2022-05-14] MEDS ORDERED: VANC500F2 IV (11:00)
[2022-05-14] MEDS ORDERED: Folic Acid PO (11:00)
--- NOTE | 2022-05-14 11:19 | NUR ---
RESP TX DEFERRED . PT RESTING WHILE RECEIVING DIALYSIS. FAMILY AT BEDSIDE NO S/S OF SOB NOTED ATT Addendum: 05/14/22 at 1121 by ZHANG REED RT Amended: Links added.
[2022-05-14 12:00] VITALS: BP 165/100
[2022-05-14 16:17] VITALS: BP 165/105
--- NOTE | 2022-05-14 18:27 | NUR ---
RN CLOSING NOTE PT IN BED. Ax0 X4. NO COMPLAINTS OF PAIN/DISCOMFORT NOTED AT THIS TIME. PT ON 02 NASAL CANNULA AT 2 L AT 97%. PT ON TELE MONITOR SR. PT HOUSE CATHETER WITH HEMATURIA DRAINING TO GRAVITY. IV ACCESS ON PICC LINE FRANCESCA . INTACT, FLUSHING WELL. NO SIGNS OF INFILTRATION. PT HAS R CHEST WALL PERMCATH CLEAN, DRESSING INTACT. ALL MEDICATIONS WERE ADMINISTERED , ALL NEEDS WERE MET ALL SAFETY MEASURES IN PLACE. BED IN LOWEST & LOCKED POSITION, SIDE RAILS UP X2., HOB ELEVATED, BED ALARM ON, CALL LIGHT WITHIN REACH.WILL ENDORSE RECYCLER FORKLIFT DRIVER TRUCK DRIVER NURSE TO FALLOW POC
--- NOTE | 2022-05-14 19:10 | NUR ---
RN OPENING NOTE: RECEIVED PT IN BED. A0X4, NO COMPLAINTS OF PAIN/DISCOMFORT AT THIS TIME. PT. ON O2 VIA NC 1L/MIN. NO S/S OF RESPIRATORY DISTRESS, TELE MONITOR READS ST. R CHEST WALL PERMA CATH NOTED, DRESSING C/D/I. IV ACCESS FRANCESCA PICC, INTACT AND PATENT, HOUSE CATHETER SHOWS SIGNS OF HEMATURIA. HAS BILATERAL GROIN REDNESS. AT BEDSIDE. SAFETY MEASURES IN PLACE: BED IN LOWEST & LOCKED POSITION, SIDE RAILS UP, HOB ELEVATED AT 30 DEGREES, BED ALARM ON, CALL LIGHT WITHIN REACH. WILL ENCOURAGE FREQUENT REPOSITIONING IN BED AT LEAST Q2H. WILL CONTINUE TO MONITOR FOR ANY CHANGES.
[2022-05-14 20:00] VITALS: BP 173/98
[2022-05-15] VITALS: BP 142/97
[2022-05-15] MEDS: hydrALAZINE HCL 25 MG TABLET PO SCH ×5 (01:03→23:30)
[2022-05-15] MEDS: ZOLPIDEM TARTRATE 5 MG TABLET PO PRN (01:07)
[2022-05-15] MEDS: ALBUTEROL FS 2.5 MG/0.5 ML VIAL.NEB NEB SCH ×6 (03:22→23:15)
[2022-05-15 04:00] VITALS: BP 157/106
--- NOTE | 2022-05-15 06:44 | NUR ---
RN CLOSING NOTE: PT IN BED. A0X4, NO COMPLAINTS OF PAIN/DISCOMFORT AT THIS TIME. PT. ON O2 VIA NC 1L/MIN. NO S/S OF RESPIRATORY DISTRESS, TELE MONITOR READS ST. R CHEST WALL PERMA CATH NOTED, DRESSING C/D/I. IV ACCESS FRANCESCA PICC, INTACT AND PATENT, HOUSE CATHETER SHOWS SIGNS OF HEMATURIA OUTPUT WAS 200ML. HAS BILATERAL GROIN REDNESS.ALL DUE MEDS GIVEN. ALL SAFETY MEASURES IN PLACE; BED LOCKED IN LOW POSITION, BED ALARM ON, CALL LIGHT WITHIN REACH, SIDE RAILS UP X3. WILL ENDORSE TO MORNING SHIFT FOR KEMAL.
[2022-05-15 06:51] LABS: CALCIUM, SERUM 8.4 mg/dL (8.5-10.1); CREATININE 5.4 mg/dL (0.6-1.3); POTASSIUM 3.5 mmol/L (3.5-5.1)
[2022-05-15] MEDS: LORAZEPAM 0.5 MG TABLET PO PRN ×2 (07:10→17:45)
[2022-05-15] MEDS: PANTOPRAZOLE 40 MG TABLET.DR PO SCH (07:10)
[2022-05-15] MEDS: LEVOTHYROXINE SODIUM 25 MCG TABLET PO SCH (07:10)
--- NOTE | 2022-05-15 07:11 | NUR ---
RN OPEN NOTE RECEIVED PT IN BED. A0X4, COMPLAINED OF THE ANXIETY ASKING FOR ATIVAN TAB PT. ON O2 VIA NC 1L/MIN. NO S/S OF RESPIRATORY DISTRESS, TELE MONITOR READS ST. R CHEST WALL PERMA CATH NOTED, DRESSING C/D/I. IV ACCESS FRANCESCA PICC, INTACT AND PATENT, HOUSE CATHETER SHOWS SIGNS OF HEMATURIA. HAS BILATERAL GROIN REDNESS. SAFETY MEASURES IN PLACE: BED IN LOWEST & LOCKED POSITION, SIDE RAILS UP, HOB ELEVATED AT 30 DEGREES, BED ALARM ON, CALL LIGHT WITHIN REACH. WILL ENCOURAGE FREQUENT REPOSITIONING IN BED AT LEAST Q2H. WILL CONTINUE TO FALLOW POC
[2022-05-15] MEDS: CLONIDINE HCL 0.1 MG TABLET PO PRN ×2 (07:52→13:28)
--- NOTE | 2022-05-15 07:52 | NUR ---
rn note patient had elevated bp 180/90 , clonidine 0.1 mg 1 tab orally was administered
[2022-05-15 08:00] VITALS: BP 185/100
[2022-05-15 08:26] LABS: BASOPHILS # (AUTO) 0.1 K/uL (0.0-0.2); BASOPHILS % (AUTO) 0.9 % (0.0-2.0); HEMATOCRIT 25 % (33-45); LYMPHOCYTES % (AUTO) 12.4 % (20.0-44.0); MEAN CORPUSCULAR HGB CONC 32 g/dl (31.0-36.0); MEAN CORPUSCULAR VOLUME 79 fL (82-100); MONOCYTES # (AUTO) 0.8 K/uL (0.1-1.30); MONOCYTES % (AUTO) 4.8 % (2.0-12.0); NEUTROPHILS # (AUTO) 12.6 K/uL (1.8-8.9); NEUTROPHILS % (AUTO) 79.9 % (43.0-81.0); PLATELET COUNT (AUTO) 415 K/uL (150-450); RED BLOOD CELL COUNT(AUTO) 3.18 MIL/uL (4.0-5.2); WHITE BLOOD COUNT (AUTO) 15.8 K/uL (4.3-11.0)
[2022-05-15] MEDS: FOLIC ACID 1 MG TABLET PO SCH (08:27)
[2022-05-15] MEDS: THIAMINE HCL 100 MG TABLET PO SCH (08:27)
[2022-05-15] MEDS: ASPIRIN 81 MG TAB.CHEW PO SCH (08:27)
[2022-05-15] MEDS ORDERED: NIFEdipine XL (30MG) 30 MG TAB PO SCH (09:00)
[2022-05-15] MEDS ORDERED: GENTAMICIN 80 MG in IV D5W 50 ML IV PRN (11:00)
[2022-05-15] MEDS: hydrALAZINE HCL IV 20 MG VIAL IV PRN ×2 (11:14→15:29)
[2022-05-15] MEDS: ACETAMINOPHEN 650 MG/20.3 ML UDC NG PRN ×2 (12:22→18:43)
[2022-05-15] MEDS ORDERED: NIFEdipine XL (30MG) 30 MG TAB PO ONE (12:30)
[2022-05-15 12:33] VITALS: BP 174/105
[2022-05-15] MEDS ORDERED: VANCOMYCIN 1 GM in IV D5W 250ml IV ONE ×2 (13:00→17:00)
--- NOTE | 2022-05-15 13:00 | NUR ---
RN NOTE PATIENT HAS BP 197/105 , HR 105 , DR ROD WAS NOTIFIED , NEW ORDER FOR HYDRALAZINE 20 NG IV EVERY 6 HR NEEDED IF SBP MORE THEN 160 RECEIVED AND WAS ADMINISTERED, ALSO ORDER RECEIVED TO INCREASE NIFEDIPINE TO 90 MG ORALLY DAILY
[2022-05-15] MEDS ORDERED: GENTAMICIN 160 MG in IV D5W 100 ML IV ONE (15:00)
[2022-05-15 16:13] VITALS: BP 174/100
--- NOTE | 2022-05-15 17:11 | NUR ---
RN NOTE PATIENT S/P HD , REMOVED 4 L .PATIENT HAD ALL THE MEDICATIONS WAS ADMINISTERED ,BP RECHECKED MANUALLY 180/100 , HR 105 DR Cochran was notified .
[2022-05-15] MEDS: LISINOPRIL (5MG) 5 MG TABLET PO SCH (17:43)
--- NOTE | 2022-05-15 17:58 | NUR ---
RN NOTE PATIENT WAS SCHEDULED FOR DISCHARGE , BUT PATIENT STATED THAT SHE DOESN'T FEEL THAT IT IS SAFE TO LEAVE THE HOSPITAL WITH ELEVATED BLOOD PRESSURE AND ASKED TO STAY OVER NIGHT DR SAINZ NOTIFIED . ORDER TO KEEP PATIENT OVER NIGHT RECEIVED
--- NOTE | 2022-05-15 18:26 | NUR ---
RN CLOSING NOTE PT IN BED. A0X4, NO COMPLAINTS OF PAIN/DISCOMFORT AT THIS TIME. PT. ON O2 VIA NC 2L/MIN. NO S/S OF RESPIRATORY DISTRESS, TELE MONITOR READS ST. R CHEST WALL PERMA CATH NOTED, DRESSING C/D/HEMODIALYSIS WAS DONE TODAY , REMOVED 4 L , PATIENT ALL DAY HAS HAD ELEVATED BLOOD PRESSURE , LISINOPRIL 5 MG DAILY NEW ORDER , NIFEDIPINE INCREASED TO 90 MG DAILY , HYDRALAZINE 20 MG IV EVERY 6 HR NEEDED ORDERED . IV ACCESS FRANCESCA PICC, INTACT AND PATENT, HOUSE CATHETER SHOWS SIGNS OF HEMATURIA OUTPUT WAS 100 ML. ORDER FOR DISCHARGE PATIENT TO [facility] RECEIVED , PATIENT DOESN'T WANT TO LEAVE HOSPITAL TONIGHT BECAUSE OF ELEVATED BLOOD PRESSURE .DR SAINZ NOTIFIED . ORDER TO KEEP PATIENT OVER NIGHT RECEIVED .ALSO PATIENT HAS BILATERAL GROIN REDNESS.ALL DUE MEDS GIVEN. ALL SAFETY MEASURES IN PLACE; BED LOCKED IN LOW POSITION, BED ALARM ON, CALL LIGHT WITHIN REACH, SIDE RAILS UP X3. WILL ENDORSE TO RAILROAD CAR CHECKER FOR KEMAL.
--- NOTE | 2022-05-15 19:30 | NUR ---
RN OPENING NOTE RECEIVED PT IN BED, A/O X 4, AT BEDSIDE. CURRENTLY ON 2L VIA NC, TOLERATING WELL, SATING AT >95%. NO S/SX OF RESPI DISTRESS NOTED AT THIS TIME. R CHEST WALL PERMA CATH NOTED, DRESSING C/D/I. FRANCESCA PICC IN PLACE, INTACT AND PATENT, NO FLUIDS RUNNING. HOUSE CATHETER NOTED WITH SIGNS OF HEMATURIA. PT IS S/P HD, 4L OF FLUIDS REMOVED. BILATERAL GROIN REDNESS NOTED, TOO. ALL SAFETY MEASURES IN PLACE: BED IN LOWEST & LOCKED POSITION, SIDE RAILS UP X 2, HOB ELEVATED AT 30 DEGREES, BED ALARM ON, CALL LIGHT WITHIN REACH. WILL ENCOURAGE FREQUENT REPOSITIONING IN BED AT LEAST Q2H. WILL CONTINUE TO MONITOR FOR ANY CHANGES.
[2022-05-15 20:00] VITALS: BP 153/90
[2022-05-16] VITALS: BP 132/75
[2022-05-16] MEDS: LORAZEPAM 0.5 MG TABLET PO PRN ×3 (01:57→18:11)
[2022-05-16] MEDS: ALBUTEROL FS 2.5 MG/0.5 ML VIAL.NEB NEB SCH ×6 (03:10→23:50)
[2022-05-16 04:00] VITALS: BP 137/90
[2022-05-16] MEDS: hydrALAZINE HCL 25 MG TABLET PO SCH ×3 (05:10→18:09)
[2022-05-16] MEDS ORDERED: VANCOMYCIN POST DIALYSIS 500MG IV PRN ×2 (06:00)
--- NOTE | 2022-05-16 06:19 | NUR ---
RN NOTE PT'S BP HAS STABILIZED AND WENT DOWN TO 137/90 OF THE LATEST. ALL OTHER VS STABLE. DUE MEDS GIVEN. NEEDS ATTENDED TO. WILL ENDORSE TO AM SHIFT NURSE FOR KEMAL.
[2022-05-16 06:55] LABS: POTASSIUM 3.6 mmol/L (3.5-5.1)
[2022-05-16 07:04] LABS: GENTAMICIN,RANDOM 2.5 ug/ml (4.0-8.0)
--- NOTE | 2022-05-16 07:17 | NUR ---
RN OPENING NOTE RECEIVED PT IN BED, A/O X 4, AT BEDSIDE. CURRENTLY ON 2L VIA NC, TOLERATING WELL. NO S/SX OF RESPI DISTRESS NOTED AT THIS TIME. R CHEST WALL PERMA CATH NOTED, DRESSING C/D/I. FRANCESCA PICC IN PLACE, INTACT AND PATENT, NO FLUIDS RUNNING. HOUSE CATHETER NOTED. SAFETY MEASURES IN PLACE, CALL LIGHT WITHIN REACH, BED ALARM ACTIVATED, BED LOCKED IN THE LOWEST POSITION.
[2022-05-16 08:00] VITALS: BP 144/91
[2022-05-16] MEDS ORDERED: GENTAMICIN 140 MG in IV D5W 100 ML IV PRN (09:00)
[2022-05-16] MEDS: FOLIC ACID 1 MG TABLET PO SCH (09:07)
[2022-05-16] MEDS: NIFEdipine XL (30MG) 30 MG TAB PO SCH (09:07)
[2022-05-16] MEDS: ASPIRIN 81 MG TAB.CHEW PO SCH (09:07)
[2022-05-16] MEDS: THIAMINE HCL 100 MG TABLET PO SCH (09:07)
[2022-05-16] MEDS: LEVOTHYROXINE SODIUM 25 MCG TABLET PO SCH (09:07)
[2022-05-16] MEDS: LISINOPRIL (5MG) 5 MG TABLET PO SCH (09:08)
[2022-05-16] MEDS: PANTOPRAZOLE 40 MG TABLET.DR PO SCH (09:08)
[2022-05-16] MEDS: METOPROLOL TARTRATE 25 MG TABLET PO SCH ×2 (11:02→21:33)
[2022-05-16 12:00] VITALS: BP 158/88
[2022-05-16 16:00] VITALS: BP 148/92
--- NOTE | 2022-05-16 18:38 | NUR ---
RN CLOSING NOTE PT IN BED. A0X4, NO COMPLAINTS OF PAIN/DISCOMFORT AT THIS TIME. PT. ON O2 VIA NC 2L/MIN. NO S/S OF RESPIRATORY DISTRESS, TELE MONITOR READ. R CHEST WALL PERMA CATH NOTED, DRESSING C/D/ , ALL SAFETY MEASURES IN PLACE; BED LOCKED IN LOW POSITION, BED ALARM ON, CALL LIGHT WITHIN REACH, SIDE RAILS UP X3. WILL ENDORSE TO SECURITY NURSE FOR KEMAL.
[2022-05-16 22:00] VITALS: BP 148/92
[2022-05-17] VITALS: BP 148/92
[2022-05-17] MEDS: hydrALAZINE HCL 25 MG TABLET PO SCH ×2 (00:38→05:31)
[2022-05-17] MEDS: ZOLPIDEM TARTRATE 5 MG TABLET PO PRN (00:42)
[2022-05-17] MEDS: LORAZEPAM 0.5 MG TABLET PO PRN (02:38)
[2022-05-17] MEDS: ALBUTEROL FS 2.5 MG/0.5 ML VIAL.NEB NEB SCH ×2 (03:45→08:28)
[2022-05-17 04:00] VITALS: BP 145/72
--- NOTE | 2022-05-17 07:58 | NUR ---
RN NOTE REPORT GIVEN TO [facility] FOR KEMAL.
[2022-05-17 08:00] VITALS: BP 138/84
[2022-05-17 08:02] LABS: CALCIUM, SERUM 8.2 mg/dL (8.5-10.1); CARBON DIOXIDE 24 mmol/L (21-32); GLUCOSE 88 mg/dL (74-106); POTASSIUM 3.7 mmol/L (3.5-5.1); SODIUM SERUM 134 mmol/L (136-145); UREA NITROGEN, BLOOD 33 mg/dL (7-18)
[2022-05-17] MEDS: PANTOPRAZOLE 40 MG TABLET.DR PO SCH (08:04)
[2022-05-17] MEDS: LEVOTHYROXINE SODIUM 25 MCG TABLET PO SCH (08:04)
[2022-05-17] MEDS: LISINOPRIL (5MG) 5 MG TABLET PO SCH (08:05)
[2022-05-17] MEDS: METOPROLOL TARTRATE 25 MG TABLET PO SCH (08:05)
[2022-05-17 08:06] VITALS: BP 138/84
[2022-05-17] MEDS: NIFEdipine XL (30MG) 30 MG TAB PO SCH (08:06)
[2022-05-17] MEDS: THIAMINE HCL 100 MG TABLET PO SCH (08:07)
[2022-05-17] MEDS: FOLIC ACID 1 MG TABLET PO SCH (08:07)
[2022-05-17] MEDS: ASPIRIN 81 MG TAB.CHEW PO SCH (08:07)
[2022-05-17] MEDS ORDERED: METO25TA20 PO (09:34)
[2022-05-17] MEDS ORDERED: NIFE-35 PO (09:35)
[2022-05-17] MEDS ORDERED: LISI-768 PO (09:35)
--- NOTE | 2022-05-17 09:56 | NUR ---
RN NOTE PT PICKED UP BY AMBULANCE CREW. AND SISTER AT BEDSIDE. PT VERBALIZES UNDERSTANDING OF D/C INSTRUCTION AND GOAL OF REHAB FACILITY AT THIS TIME. VITAL SIGNS STABLE, NO SIGNS OF LABORED BREATHING ON 2L O2 NC.
--- NOTE | 2022-05-17 10:11 | NUR ---
RN NOTE [facility] 3.4. [facility] NOTIFIED.
== END 2022-05-17 09:50 | DRG 870 ==
LOC: ER 08:37 → ICU 12:02 → TELE-TD 05-08 15:22 → TELE1 05-09 12:31
PROVIDERS: ADMIT Nurse Practitioner Acute Care; ATTEND Internal Medicine
PROC: 5A1955Z Respiratory Ventilation, Greater than 96 Consecutive Hours (ICD-10-PCS; principal; 2022-05-02)
PROC: 0BH18EZ Insertion of Endotracheal Airway into Trachea, Via Natural or Artificial Opening Endoscopic (ICD-10-PCS; 2022-05-02)
PROC: 02HV33Z Insertion of Infusion Device into Superior Vena Cava, Percutaneous Approach (ICD-10-PCS; 2022-05-02)
PROC: B548ZZA Ultrasonography of Superior Vena Cava, Guidance (ICD-10-PCS; 2022-05-02)
PROC: 5A1D70Z Performance of Urinary Filtration, Intermittent, Less than 6 Hours Per Day (ICD-10-PCS; 2022-05-04)
PROC: 05HM33Z Insertion of Infusion Device into Right Internal Jugular Vein, Percutaneous Approach (ICD-10-PCS; 2022-05-04)
PROC: B543ZZA Ultrasonography of Right Jugular Veins, Guidance (ICD-10-PCS; 2022-05-04)
DX: A40.0 Sepsis due to streptococcus, group A (principal); I21.A1 Myocardial infarction type 2; J96.02 Acute respiratory failure with hypercapnia; J69.0 Pneumonitis due to inhalation of food and vomit; N17.0 Acute kidney failure with tubular necrosis; K29.71 Gastritis, unspecified, with bleeding; K27.4 Chronic or unspecified peptic ulcer, site unspecified, with hemorrhage; K72.00 Acute and subacute hepatic failure without coma; G40.509 Epileptic seizures related to external causes, not intractable, without status epilepticus; Z68.41 Body mass index [BMI] 40.0-44.9, adult; E87.20 Acidosis, unspecified; E87.1 Hypo-osmolality and hyponatremia; J98.11 Atelectasis; Z20.822 Contact with and (suspected) exposure to COVID-19; F10.10 Alcohol abuse, uncomplicated; F32.A Depression, unspecified; Y90.0 Blood alcohol level of less than 20 mg/100 ml; R65.20 Severe sepsis without septic shock; Z79.899 Other long term (current) drug therapy; R74.01 Elevation of levels of liver transaminase levels; R94.6 Abnormal results of thyroid function studies; E66.01 Morbid (severe) obesity due to excess calories; E03.9 Hypothyroidism, unspecified; Z99.2 Dependence on renal dialysis; Z98.84 Bariatric surgery status; K70.10 Alcoholic hepatitis without ascites; K81.9 Cholecystitis, unspecified; K76.0 Fatty (change of) liver, not elsewhere classified; E83.39 Other disorders of phosphorus metabolism; G47.33 Obstructive sleep apnea (adult) (pediatric); E87.5 Hyperkalemia; E87.6 Hypokalemia
CPT/HCPCS: 31720; 36415; 36569; 36600; 70450-TC; 71045-TC; 76705-TC; 76770-TC; 80048-TC; 80053-TC; 80061-TC; 80076-TC; 80170-TC; 80202-TC; 81001; 82140-TC; 82533; 82550-TC; 82553; 82728-TC; 82803-TC; 83540-TC; 83605-TC; 83735-TC; 84100-TC; 84300-TC; 84436-TC; 84443-TC; 84478-TC; 84481; 84484-TC; 84702-TC; 84703-TC; 85025-TC; 85730-TC; 86704; 86705; 86706; 86803; 87040-TC; 87081-TC; 87086-TC; 87340; 90935-TC; 92526; 92611-TC; 93307-TC; 94002-TC; 94003-TC; 94762-TC; 94799-TC; 97112-TC; 97116-TC; 97530-TC; A4216; A6403; C1750; C1757; C1769; C1894; C9113; C9803; G0378; G0480; J0360; J0692; J0696; J1580; J1644; J2405; J2543; J2704; J3370; J3411; J3480; J3490; J7030; J7042; J7050; J7060; P9047; Q9966